=== PATIENT | female | born 1945 | race Caucasian/White ===

== ENCOUNTER 2017-01-09 15:46 | Emergency (ER) | payer OTHER ==
--- NOTE | 2017-01-09 16:34 | DIAGNOSTIC IMAGING REPORT ---
PROCEDURE: XR CHEST 2 VIEW INDICATION: SHORTNESS OF BREATH TECHNIQUE: PA and lateral views. COMPARISON: Chest 07/28/2013 FINDINGS: Hyperinflation. Lungs are clear. Cardiovascular structures and bony thorax are normal. IMPRESSION: 1. COPD 2. No acute changes
--- NOTE | 2017-01-09 17:33 | ED NURSING NOTES ---
Clinical Report - Nurses [facility] [address] [place] [address] 01/09/2017 15:47 Patient: PORFIRIO MO TRIAGE Triage time 15:49 Jan 09 2017. Acuity: LEVEL 2. Chief Complaint: WHEEZING (SOB). Alert. SEPSIS SCREEN: Sepsis Screen: negative. Negative (no infection suspected/documented). Mean arterial pressure less than 65. Temperature not greater than 38.3 degrees C (101 degrees F) or less than 36 degrees C (96.8 degrees F). Heart rate not greater than 90. Respiratory rate not greater than 20. No acute mental status change. Systolic blood pressure not less than 90. --16:00 Mona Starkey R.N. 15:49 01/09/17. BP: 219/112. HR: 91. RR: 24. O2 saturation: 99%. Temp: 98.2 F. --16:00 Mona Starkey R.N. 15:49 01/09/17. --17:46 Mona Starkey R.N. 17:46 01/09/17. Pain level now: 0/10. --17:46 Mona Starkey R.N. Weight: 45.3 kg stated. Height/Length: 60 inches Per Patient. BMI: 19.5. --16:00 Mona Starkey R.N. Medications Albuterol Sulfate ER Oral. --15:50 Mona Starkey R.N. Advair Diskus Inhalation. --15:50 Mona Starkey R.N. Aspirin Oral (Tablet Chewable 81 mg) 1 tablet, QAM. BuPROPion HCl Oral 450 mg, daily. Metoprolol Tartrate Oral (Tablet 25 mg), QAM. Omeprazole Oral (Capsule Delayed Release 20 mg), daily. --15:52 Mona Starkey R.N. Mirtazapine Oral. --15:52 Mona Starkey R.N. Allergies morphine. --15:50 Mona Starkey R.N. History Arrived by EMS, and from home. Historian: spouse and family. Accompanied by family. This started today. She has had difficulty breathing. 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 (125 solumedrol). PAST MEDICAL HX: Immunizations: up-to-date. The patient has had a hysterectomy. Denies current . SOCIAL HX: Current every day light tobacco smoker (cigarette)- less than 1/2 a pack per day. No alcohol use or drug use. No infectious disease exposure. FALL RISK ASSESSMENT: Fall risk assessment completed. No fall risk identified. NUTRITIONAL RISK ASSESSMENT: The nutritional risk assessment revealed no deficiencies. FUNCTIONAL ASSESSMENT: Functional assessment: no impairments noted. LEARNING NEEDS ASSESSMENT: The learning needs assessment revealed no barriers. SKIN INTEGRITY ASSESSMENT: Skin integrity risk assessment completed. No skin integrity risk identified. --16:00 Mona Starkey R.N. PROBLEMS: UTI - Urinary Tract Infection. Depression. Diverticulosis. Hypertension. Gastroesophageal Reflux. Atypical Chest Pain. Chest Pain. Immunizations. Diverticulitis. COPD - Chronic Obstructive Pulmonary Disease. --15:52 Mona Starkey R.N. ADDITIONAL SURGERIES: Hysterectomy. --15:52 Mona Starkey R.N. Interventions ID band on patient. To room. --16:00 Mona Starkey R.N. PHYSICAL ASSESSMENT GENERAL / NEURO / PSYCH: Alert. Oriented X 4. HEENT: Runny nose. RESPIRATORY: The patient can speak a few words at a time. Accessory muscle use. CVS: Capillary refill is greater than 2 seconds. SKIN: Skin is warm and dry. --16:01 Mona Starkey R.N. NURSING PROGRESS NOTES 16:02 01/09/2017 Site #1 started prior to arrival by EMS via IV in the right forearm with an 20g angiocath. --16:02 Mona Starkey R.N. Oxygen administered at 2 liters. school lunch monitor, pulse oximeter and NIBP monitor placed on patient; monitor and storage bin tender- Lead II; monitor alarms on. Two patient identifiers checked. Call light placed in reach. Side rails up. Bed placed in lowest position. Brakes of bed on. Patient ready for evaluation- chart flagged. --16:02 Mona Starkey R.N. EKG time: (16:02). EKG was performed by a tech and shown to the ED physician. --16:07 Darion Marcus 16:15 01/09/2017 Solu-MEDROL IV 125 mg (NOW) was refused by held per RN because of given by medics. Mona Starkey --16:15 Mona Starkey R.N. 16:21 01/09/2017 ALBUTEROL NEB W ATROVENT Neb TX Nebulizer 1 unit dose given. Given by the respiratory therapist. Allergies verified and confirmed 5 rights. --16:21 Melissa Hoyos 16:21 01/09/2017 Albuterol Neb TX 2 unit dose given. Given by the respiratory therapist. Allergies verified and confirmed 5 rights. --16:21 Melissa Hoyos 16:31 01/09/17. BP: 184/90. HR: 81. RR: 16. O2 saturation: 100% at 10 liters/minute. --16:32 Mona Starkey R.N. DISPOSITION / DISCHARGE Condition at departure: improved. --17:38 Mona Starkey R.N. 17:38 01/09/17. BP: 147/81. HR: 91. RR: 23. O2 saturation: 93%. Pain level now: 0/10. --17:38 Mona Starkey R.N. Departure time: 17:45 Jan 09 2017. Condition at departure: improved. No learning barriers present. Discharge instructions provided and reviewed with the patient. Reviewed medication(s) side effects, precautions and dosing information. Prescription(s) given to the patient. Reviewed referral to a primary care physician. Reviewed need to stop smoking- provided smoking cessation materials. Patient verbalized understanding. Written instructions provided in Faroese. The patient was discharged home and accompanied by spouse. She left the Emergency Department ambulatory and via private vehicle. Spouse driving. --17:45 Mona Starkey R.N. Locked/Released at 01/09/2017 18:31 by Mona Starkey R.N.
--- NOTE | 2017-01-09 17:33 | ED ORDER SUMMARY ---
..... Patient: PORFIRIO MO OrderSheet [facility] VisitID: [id number] [place] [address] 71y, F Registration Date/Time: 01/09/2017 ORDER SHEET Weight: 45.3 kg (stated) Allergies: morphine GENERAL ORDERS: Chest 2V Urgent (16:09 01/09/2017 HBivens A.R.N.P.) (Ack 16:16 RKaruga) (16:30 KKnebel R.N.) CBC w Diff Urgent (16:10 01/09/2017 HBivens A.R.N.P.) (Ack 16:16 RKaruga) (16:31 KKnebel R.N.) CMP Urgent (16:01/09/2017 HBivens A.R.N.P.) (Ack 16:16 RKaruga) (16:31 KKnebel R.N.) MEDICATION ORDERS: Albuterol Neb w Atrovent 1 unit dose (NOW) (16:09 01/09/2017 HBivens A.R.N.P.) (16:21 John) Albuterol Neb Tx 2 unit doses (NOW) (16:10 01/09/2017 HBivens A.R.N.P.) (16:21 John) IV FLUIDS: Solu-MEDROL IV 125 mg (NOW) (16:10 01/09/2017 HBivens A.R.N.P.) (16:15 KKnebel R.N.) IV Saline Lock (16:10 01/09/2017 HBivens A.R.N.P.) (16:12 KKnebel R.N.) ORDER SHEET NOTES: [Electronically signed by Mona Starkey R.N. (18:31 01/09/2017)] [Electronically signed by Neena Agrawal A.R.N.P. (18:49 01/09/2017)] [Electronically locked/signed by Mona Starkey R.N. (18:31 01/09/2017)]
--- NOTE | 2017-01-09 17:33 | ED NURSING NOTES ---
Clinical Report - Nurses [facility] [address] [place] [address] 01/09/2017 15:47 Patient: PORFIRIO MO TRIAGE Triage time 15:49 Jan 09 2017. Acuity: LEVEL 2. Chief Complaint: WHEEZING (SOB). Alert. SEPSIS SCREEN: Sepsis Screen: negative. Negative (no infection suspected/documented). Mean arterial pressure less than 65. Temperature not greater than 38.3 degrees C (101 degrees F) or less than 36 degrees C (96.8 degrees F). Heart rate not greater than 90. Respiratory rate not greater than 20. No acute mental status change. Systolic blood pressure not less than 90. --16:00 Mona Starkey R.N. 15:49 01/09/17. BP: 219/112. HR: 91. RR: 24. O2 saturation: 99%. Temp: 98.2 F. --16:00 Mona Starkey R.N. 15:49 01/09/17. --17:46 Mona Starkey R.N. 17:46 01/09/17. Pain level now: 0/10. --17:46 Mona Starkey R.N. Weight: 45.3 kg stated. Height/Length: 60 inches Per Patient. BMI: 19.5. --16:00 Mona Starkey R.N. Medications Albuterol Sulfate ER Oral. --15:50 Mona Starkey R.N. Advair Diskus Inhalation. --15:50 Mona Starkey R.N. Aspirin Oral (Tablet Chewable 81 mg) 1 tablet, QAM. BuPROPion HCl Oral 450 mg, daily. Metoprolol Tartrate Oral (Tablet 25 mg), QAM. Omeprazole Oral (Capsule Delayed Release 20 mg), daily. --15:52 Mona Starkey R.N. Mirtazapine Oral. --15:52 Mona Starkey R.N. Allergies morphine. --15:50 Mona Starkey R.N. History Arrived by EMS, and from home. Historian: spouse and family. Accompanied by family. This started today. She has had difficulty breathing. 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 (125 solumedrol). PAST MEDICAL HX: Immunizations: up-to-date. The patient has had a hysterectomy. Denies current . SOCIAL HX: Current every day light tobacco smoker (cigarette)- less than 1/2 a pack per day. No alcohol use or drug use. No infectious disease exposure. FALL RISK ASSESSMENT: Fall risk assessment completed. No fall risk identified. NUTRITIONAL RISK ASSESSMENT: The nutritional risk assessment revealed no deficiencies. FUNCTIONAL ASSESSMENT: Functional assessment: no impairments noted. LEARNING NEEDS ASSESSMENT: The learning needs assessment revealed no barriers. SKIN INTEGRITY ASSESSMENT: Skin integrity risk assessment completed. No skin integrity risk identified. --16:00 Mona Starkey R.N. PROBLEMS: UTI - Urinary Tract Infection. Depression. Diverticulosis. Hypertension. Gastroesophageal Reflux. Atypical Chest Pain. Chest Pain. Immunizations. Diverticulitis. COPD - Chronic Obstructive Pulmonary Disease. --15:52 Mona Starkey R.N. ADDITIONAL SURGERIES: Hysterectomy. --15:52 Mona Starkey R.N. Interventions ID band on patient. To room. --16:00 Mona Starkey R.N. PHYSICAL ASSESSMENT GENERAL / NEURO / PSYCH: Alert. Oriented X 4. HEENT: Runny nose. RESPIRATORY: The patient can speak a few words at a time. Accessory muscle use. CVS: Capillary refill is greater than 2 seconds. SKIN: Skin is warm and dry. --16:01 Mona Starkey R.N. NURSING PROGRESS NOTES 16:02 01/09/2017 Site #1 started prior to arrival by EMS via IV in the right forearm with an 20g angiocath. --16:02 Mona Starkey R.N. Oxygen administered at 2 liters. engine monitor, pulse oximeter and NIBP monitor placed on patient; groundwater monitoring technician- Lead II; monitor alarms on. Two patient identifiers checked. Call light placed in reach. Side rails up. Bed placed in lowest position. Brakes of bed on. Patient ready for evaluation- chart flagged. --16:02 Mona Starkey R.N. EKG time: (16:02). EKG was performed by a tech and shown to the ED physician. --16:07 Darion Marcus 16:15 01/09/2017 Solu-MEDROL IV 125 mg (NOW) was refused by held per RN because of given by medics. Mona Starkey --16:15 Mona Starkey R.N. 16:21 01/09/2017 ALBUTEROL NEB W ATROVENT Neb TX Nebulizer 1 unit dose given. Given by the respiratory therapist. Allergies verified and confirmed 5 rights. --16:21 Melissa Hoyos 16:21 01/09/2017 Albuterol Neb TX 2 unit dose given. Given by the respiratory therapist. Allergies verified and confirmed 5 rights. --16:21 Melissa Hoyos 16:31 01/09/17. BP: 184/90. HR: 81. RR: 16. O2 saturation: 100% at 10 liters/minute. --16:32 Mona Starkey R.N. DISPOSITION / DISCHARGE Condition at departure: improved. --17:38 Mona Starkey R.N. 17:38 01/09/17. BP: 147/81. HR: 91. RR: 23. O2 saturation: 93%. Pain level now: 0/10. --17:38 Mona Starkey R.N. Departure time: 17:45 Jan 09 2017. Condition at departure: improved. No learning barriers present. Discharge instructions provided and reviewed with the patient. Reviewed medication(s) side effects, precautions and dosing information. Prescription(s) given to the patient. Reviewed referral to a primary care physician. Reviewed need to stop smoking- provided smoking cessation materials. Patient verbalized understanding. Written instructions provided in Brazilian. The patient was discharged home and accompanied by spouse. She left the Emergency Department ambulatory and via private vehicle. Spouse driving. --17:45 Mona Starkey R.N. Locked/Released at 01/09/2017 18:31 by Mona Starkey R.N.
--- NOTE | 2017-01-09 17:33 | ED ORDER SUMMARY ---
..... Patient: PORFIRIO MO OrderSheet [facility] VisitID: [id number] [place] [address] 71y, F Registration Date/Time: 01/09/2017 ORDER SHEET Weight: 45.3 kg (stated) Allergies: morphine GENERAL ORDERS: Chest 2V Urgent (16:09 01/09/2017 HBivens A.R.N.P.) (Ack 16:16 RKaruga) (16:30 KKnebel R.N.) CBC w Diff Urgent (16:10 01/09/2017 HBivens A.R.N.P.) (Ack 16:16 RKaruga) (16:31 KKnebel R.N.) CMP Urgent (16:01/09/2017 HBivens A.R.N.P.) (Ack 16:16 RKaruga) (16:31 KKnebel R.N.) MEDICATION ORDERS: Albuterol Neb w Atrovent 1 unit dose (NOW) (16:09 01/09/2017 HBivens A.R.N.P.) (16:21 John) Albuterol Neb Tx 2 unit doses (NOW) (16:10 01/09/2017 HBivens A.R.N.P.) (16:21 John) IV FLUIDS: Solu-MEDROL IV 125 mg (NOW) (16:10 01/09/2017 HBivens A.R.N.P.) (16:15 KKnebel R.N.) IV Saline Lock (16:10 01/09/2017 HBivens A.R.N.P.) (16:12 KKnebel R.N.) ORDER SHEET NOTES: [Electronically signed by Mona Starkey R.N. (18:31 01/09/2017)] [Electronically signed by Neena Agrawal A.R.N.P. (18:49 01/09/2017)] [Electronically locked/signed by Mona Starkey R.N. (18:31 01/09/2017)]
--- NOTE | 2017-01-09 17:33 | ED CLINICAL REPORT ---
Clinical Report - Physicians/Mid Levels [facility] [address] [place] [address] 01/09/2017 15:47 Patient: PORFIRIO MO Time Seen: 16:02; initial patient contact, initial documentation, patient care assumed. Arrived- By ambulance. Historian- patient. HISTORY OF PRESENT ILLNESS Chief Complaint: DYSPNEA and WHEEZING. This started just prior to arrival and is still present. The dyspnea is described as moderate. The patient has had a cough and orthopnea. No sputum production or chest pain or discomfort. See nurses notes for current asthma threapy. Asthma triggers: unknown. Takes asthma medications (inhaled albuterol, albuterol by nebulizer) (pt wears oxygen at home at 1.5l nc). Similar symptoms previously: Chronically, worse. Recent medical care: Not recently seen/assessed. REVIEW OF SYSTEMS No sore throat, nasal discharge, sinus drainage, fever or muscle aches. All systems otherwise negative, except as recorded above. PAST HISTORY See nurses notes. PROBLEMS: UTI - Urinary Tract Infection. Depression. Diverticulosis. Hypertension. Gastroesophageal Reflux. Atypical Chest Pain. Chest Pain. Immunizations. Diverticulitis. COPD - Chronic Obstructive Pulmonary Disease. --15:52 Mona Starkey R.N. ADDITIONAL SURGERIES: Hysterectomy. --15:52 Mona Starkey R.N. SOCIAL HISTORY Light tobacco smoker. No alcohol use or drug use. No recent travel. Is a local resident. FAMILY HISTORY Negative. ADDITIONAL NOTES The nursing notes have been reviewed with agreement regarding the chief complaint, HPI, ROS, PMH and patient medications and allergies. PHYSICAL EXAM Vital Signs: 01/09/2017 15:49 BP: 219/112. HR: 91. RR: 24. O2 saturation: 99%. Temp: 98.2 F. Have been reviewed as abnormal and appear to be correct. Hypertensive. Heart rate normal. Respiratory rate normal. Temperature normal. Oxygen saturation normal. Appearance: Alert. No acute distress. Eyes: Pupils equal, round and reactive to light. Eyes normal inspection. Neck: Normal inspection. Neck supple. CVS: Normal heart rate and rhythm. Heart sounds normal. Pulses normal. Respiratory: No respiratory distress. Breath sounds abnormal. Expiratory and inspiratory moderate bilateral wheezes diffusely. Back: Normal inspection. Skin: Skin warm and dry. Normal skin color. No rash. Normal skin turgor. Extremities: Extremities exhibit normal ROM. No lower extremity edema. Neuro: Oriented X 3. No motor deficit. No sensory deficit. LABS, X-RAYS, AND EKG Chest X-ray: Normal Chest X-Ray. (IMPRESSION: 1. COPD 2. No acute changes Electronically Final signed by:Jack Morgan MD 01/09/2017 4:34:46 PM). The X-rays were interpreted by the radiologist and contemporaneously by me. Interpretation time: 16:51. Laboratory Tests: CBC w Diff: (GIRMA: 01/09/2017 16:37) ( [facility] [place] 01/09/2017 16:53) Final results Test Result Flag Units (Reference) WHITE BLOOD COUNT 14.1 H K/uL (4.5-11.5) RED BLOOD COUNT 5.68 H M/uL (4.00-5.20) HEMOGLOBIN 15.0 gm/dL (12.0-16.0) HEMATOCRIT 47.2 H % (36.0-46.0) MEAN CELL VOLUME 83 fL (80-100) MEAN CORPUSCULAR HGB 27 pg (26-34) MEAN CORPUSCULAR HGB CONC 32 g/dL (31-37) RED CELL DISTRIBUTION WIDTH 16.5 H % (11.6-14.8) PLATELET COUNT 367 K/uL (150-400) NEUTROPHIL % 79.0 H % (50-75) LYMPH % 16.0 L % (25-40) MONO % 3.8 % (3-14) EOSINOPHIL % 1.0 % (0-4) BASOPHIL % 0.2 % (0-2) CMP: (GIRMA: 01/09/2017 16:37) ( [facility] [place] 01/09/2017 17:18) Final results Test Result Flag Units (Reference) GLUCOSE 149 H mg/dL (70-110) BUN 14 mg/dL (7-18) CREATININE 0.7 mg/dL (0.6-1.3) Estimated GFR >60 mL/min Estimated GFR- >60 mL/min Note: Persistent reduction over 3 months in eGFR<60 mL/min/1.73 m2 defines CKD. Patients with eGFR values>=60 mL/min/1.73 m2 may also have CKD if evidence ofpersistent proteinuria. Additional information may be foundat www.kidney.org. SODIUM 146 H mmol/L (136-145) POTASSIUM 3.7 mmol/L (3.5-5.1) CHLORIDE 104 mmol/L (98-107) CARBON DIOXIDE 35 H mmol/L (21-32) CALCIUM 9.3 mg/dL (8.5-10.1) TOTAL PROTEIN 7.7 g/dL (6.4-8.2) ALBUMIN 4.1 g/dL (3.3-5.0) BILIRUBIN, TOTAL 1.3 H mg/dL (0.0-1.0) ALKALINE PHOSPHATASE 88 U/L (46-116) AST (SGOT) 28 U/L (15-37) ALT (SGPT) 33 U/L (12-78) . PROGRESS AND PROCEDURES Course of Care: 1710. resp even and unlabored, nad, B breath sound with very mild insp wheeze, [id number], pt stated she felt much better. 01/09/2017 16:31 BP: 184/90. HR: 81. RR: 16. O2 saturation: 100%. Vital Signs: have been reviewed as abnormal and appear to be correct. Hypertensive. Heart rate normal. Respiratory rate normal. Oxygen saturation normal. Patient counseled in person regarding the patient's stable condition, test results and diagnosis. 1710. Differential Diagnosis: Other possible considerations: copd exac, pneumonia, bronchitis, uri, viral illness. Above considerations are based on history, physical exam, laboratory data and X-Ray data. Differential diagnosis was discussed with patient. Disposition: Discharged home in good and improved condition (17:33). Condition: good and stable. CLINICAL IMPRESSION Acute exacerbation of COPD (asthmatic, chronic bronchitis). No emphysema. INSTRUCTIONS Avoid tobacco smoke. Warnings: GENERAL WARNINGS: Return or contact your physician immediately if your condition worsens or changes unexpectedly, if not improving as expected, or if other problems arise. Specifically return if problem worsens. Prescription Medications: Prednisone 20 mg: take 3 orally every day for 5 days. Dispense fifteen (15). No refills. Zithromax 250 mg tablets: take 2 orally today, followed by 1 daily for the next 4 days. No refills. Substitution is permissible. Follow-up: Follow up with your doctor in two days even if well. Call for an appointment. Summary of care provided to patient. Screening today revealed the patient's blood pressure to be in the hypertensive range. The patient should follow up with a primary care provider for blood pressure management. Understanding of the discharge instructions verbalized by patient. (Electronically signed by Neena Agrawal A.R.N.P. 01/09/2017 18:49)
--- NOTE | 2017-01-09 18:49 | ED DISCHARGE INSTRUCTIONS ---
Patient: PORFIRIO MO General Instructions [facility] VisitID: [id number] [place] [address] 71y, F Registration Date/Time: 01/09/2017 Acute exacerbation of COPD (asthmatic, chronic bronchitis). No emphysema. INSTRUCTIONS Avoid tobacco smoke. Warnings: GENERAL WARNINGS: Return or contact your physician immediately if your condition worsens or changes unexpectedly, if not improving as expected, or if other problems arise. Specifically return if problem worsens. Prescription Medications: Prednisone 20 mg: take 3 orally every day for 5 days. Dispense fifteen (15). No refills. Zithromax 250 mg tablets: take 2 orally today, followed by 1 daily for the next 4 days. No refills. Substitution is permissible. Follow-up: Follow up with your doctor in two days even if well. Call for an appointment. Summary of care provided to patient. Screening today revealed the patient's blood pressure to be in the hypertensive range. The patient should follow up with a primary care provider for blood pressure management. Understanding of the discharge instructions verbalized by patient. ADDITIONAL INFORMATION COPD Flare Both emphysema and chronic bronchitis are forms of chronic obstructive pulmonary disease (COPD). It is most often caused by many years of smoking tobacco. Many things can make your lung disease suddenly get worse. These causes include the common cold, pneumonia, acute bronchitis, missing doses of your regular breathing medicines, or being around smoke, dust, or other air pollutants. A COPD flare may last 7 to 14 days. Your doctor may prescribe medicineto relax your airways and prevent wheezing. Your doctor may also prescribe antibiotics if he or she thinks you havea bacterial infection. Prednisone can helpease inflammation in a severe attack. Home care Here are things you can do at home: Drink lots of water or other fluids (at least 10 glasses a day) during an attack. This will loosen lung secretions and make it easier to breathe. If you have heart or kidney disease, check with your doctor before you drink extra amounts of fluids. Take prescribed medicine exactly at the times advised. If you have a hand-held inhaler or aerosol breathing medicine, don't use it more than once every 4 hours, unless your doctor tells you to. If you were givenan antibiotic or prednisone, take all of the medicine even if you are feeling better after a few days. Don't smoke. Avoid being aroundthe smoke of others. If you were given an inhaler, use it exactly as directed. If you need to use it more often than prescribed, your condition may be getting worse. Call your doctor. Follow-up care Follow up with your health care provider.If you are 65 or older or have chronic asthma or COPD, you should get a single dose of the pneumococcal vaccine and aflu shot each year. You may need a second dose of the pneumococcal vaccine if you had the first dose at a younger age. Your health care provider will let you know if you need a second dose. For all other people, the usual dose for the pneumococcal vaccine is 1 or 2 shots. Yourprovider can discuss this with you. When to seek medical care Get prompt medical attention ifany of these occur: Increased wheezing or shortness of breath Need to use your inhalers more often than usual without relief Fever of 100.4F(38C) or higher, or as directed by your health care provider Coughing up lots of dark-colored or bloody sputum (mucus) Chest pain with each breath You do not start to improve within 24 hours Prednisone Oral tablet What is this medicine? PREDNISONE (PRED ni sone) is a corticosteroid. It is commonly used to treat inflammation of the skin, joints, lungs, and other organs. Common conditions treated include asthma, allergies, and arthritis. It is also used for other conditions, such as blood disorders and diseases of the adrenal glands. How should I use this medicine? Take this medicine by mouth with a glass of water. Follow the directions on the prescription label. Take this medicine with food. If you are taking this medicine once a day, take it in the morning. Do not take more medicine than you are told to take. Do not suddenly stop taking your medicine because you may develop a severe reaction. Your doctor will tell you how much medicine to take. If your doctor wants you to stop the medicine, the dose may be slowly lowered over time to avoid any side effects. Talk to your stitch bonder machine operator helper regarding the use of this medicine in children. Special care may be needed. What side effects may I notice from receiving this medicine? Side effects that you should report to your doctor or health child care coordinator as soon as possible: allergic reactions like skin rash, itching or hives, swelling of the face, lips, or tongue changes in emotions or moods changes in vision depressed mood eye pain fever or chills, cough, sore throat, pain or difficulty passing urine increased thirst swelling of ankles, feet Side effects that usually do not require medical attention (report to your doctor or health child care coordinator if they continue or are bothersome): confusion, excitement, restlessness headache nausea, vomiting skin problems, acne, thin and shiny skin trouble sleeping weight gain What may interact with this medicine? Do not take this medicine with any of the following medications: metyrapone mifepristone This medicine may also interact with the following medications: aminoglutethimide amphotericin B aspirin and aspirin-like medicines barbiturates certain medicines for diabetes, like glipizide or glyburide cholestyramine cholinesterase inhibitors cyclosporine digoxin diuretics ephedrine female hormones, like estrogens and control pills isoniazid ketoconazole NSAIDS, medicines for pain and inflammation, like ibuprofen or naproxen phenytoin rifampin toxoids vaccines warfarin What if I miss a dose? If you miss a dose, take it as soon as you can. If it is almost time for your next dose, talk to your doctor or health child care coordinator. You may need to miss a dose or take an extra dose. Do not take double or extra doses without advice. Where should I keep my medicine? Keep out of the reach of children. Store at room temperature between 15 and 30 degrees C (59 and 86 degrees F). Protect from light. Keep container tightly closed. Throw away any unused medicine after the expiration date. What should I tell my health care provider before I take this medicine? They need to know if you have any of these conditions: Coy's syndrome diabetes glaucoma heart disease high blood pressure infection (especially a virus infection such as chickenpox, cold sores, or herpes) kidney disease liver disease mental illness myasthenia gravis osteoporosis seizures stomach or intestine problems thyroid disease an unusual or allergic reaction to lactose, prednisone, other medicines, foods, dyes, or preservatives or trying to get breast-feeding What should I watch for while using this medicine? Visit your doctor or health child care coordinator for regular checks on your progress. If you are taking this medicine over a prolonged period, carry an identification card with your name and address, the type and dose of your medicine, and your doctor's name and address. This medicine may increase your risk of getting an infection. Tell your doctor or health child care coordinator if you are around anyone with measles or chickenpox, or if you develop sores or blisters that do not heal properly. If you are going to have surgery, tell your doctor or health child care coordinator that you have taken this medicine within the last twelve months. Ask your doctor or health child care coordinator about your diet. You may need to lower the amount of salt you eat. This medicine may affect blood sugar levels. If you have diabetes, check with your doctor or health child care coordinator before you change your diet or the dose of your diabetic medicine. Azithromycin Oral tablet What is this medicine? AZITHROMYCIN (az ith avrilfrida STEPHENSON sin) is a macrolide antibiotic. It is used to treat or prevent certain kinds of bacterial infections. It will not work for colds, flu, or other viral infections. How should I use this medicine? Take this medicine by mouth with a full glass of water. Follow the directions on the prescription label. The tablets can be taken with food or on an empty stomach. If the medicine upsets your stomach, take it with food. Take your medicine at regular intervals. Do not take your medicine more often than directed. Take all of your medicine as directed even if you think your are better. Do not skip doses or stop your medicine early. Talk to your stitch bonder machine operator helper regarding the use of this medicine in children. Special care may be needed. What side effects may I notice from receiving this medicine? Side effects that you should report to your doctor or health child care coordinator as soon as possible: allergic reactions like skin rash, itching or hives, swelling of the face, lips, or tongue confusion, nightmares or hallucinations dark urine difficulty breathing hearing loss irregular heartbeat or chest pain pain or difficulty passing urine redness, blistering, peeling or loosening of the skin, including inside the mouth white patches or sores in the mouth yellowing of the eyes or skin Side effects that usually do not require medical attention (report to your doctor or health child care coordinator if they continue or are bothersome): diarrhea dizziness, drowsiness headache stomach upset or vomiting tooth discoloration vaginal irritation What may interact with this medicine? Do not take this medicine with any of the following medications: lincomycin This medicine may also interact with the following medications: amiodarone antacids cyclosporine digoxin magnesium nelfinavir phenytoin warfarin What if I miss a dose? If you miss a dose, take it as soon as you can. If it is almost time for your next dose, take only that dose. Do not take double or extra doses. Where should I keep my medicine? Keep out of the reach of children. Store at room temperature between 15 and 30 degrees C (59 and 86 degrees F). Throw away any unused medicine after the expiration date. What should I tell my health care provider before I take this medicine? They need to know if you have any of these conditions: kidney disease liver disease irregular heartbeat or heart disease an unusual or allergic reaction to azithromycin, erythromycin, other macrolide antibiotics, foods, dyes, or preservatives or trying to get breast-feeding What should I watch for while using this medicine? Tell your doctor or health child care coordinator if your symptoms do not improve. Do not treat diarrhea with over the counter products. Contact your doctor if you have diarrhea that lasts more than 2 days or if it is severe and watery. This medicine can make you more sensitive to the sun. Keep out of the sun. If you cannot avoid being in the sun, wear protective clothing and use sunscreen. Do not use sun lamps or tanning beds/booths. You have been given the following additional information: COPD Flare Prednisone Oral tablet Azithromycin Oral tablet (Electronically signed by Neena Agrawal A.R.NHaleigh 01/09/2017 18:49)
--- NOTE | 2017-01-09 18:49 | ED MED RECONCILIATION SUMMARY ---
Patient: PORFIRIO MO Medication Reconciliation Report [facility] VisitID: [id number] [address] [place] [address] 71y, F Registration Date/Time: 01/09/2017 Weight: 45.3 kg Height/Length: 60 in. BMI: 19.5 ALLERGIES: morphine The patient's Home Medications are listed below: THE FOLLOWING MEDICATIONS NEED TO BE RECONCILED: Advair Diskus Inhalation Albuterol Sulfate ER Oral Aspirin Oral (81 mg) 1 tablet, QAM BuPROPion HCl Oral 450 mg, daily Metoprolol Tartrate Oral (25 mg), QAM Mirtazapine Oral Omeprazole Oral (20 mg), daily The source(s) of the original Home Medication information: Not obtained. The following Medications were given to the patient in the Emergency Department: ALBUTEROL NEB W ATROVENT Neb TX 1 unit dose, administered: 01/09/2017 4:21:00 PM Albuterol [Neb Tx] Neb TX 2 unit dose, administered: 01/09/2017 4:21:00 PM The following Medications were prescribed to the patient: Prednisone 20 mg: take 3 orally every day for 5 days. Dispense fifteen (15). No refills. -- Neena Agrawal A.R.NIsabelP. Zithromax 250 mg tablets: take 2 orally today, followed by 1 daily for the next 4 days. No refills. Substitution is permissible. -- Neena Agrawal A.R.NIsabelP.
--- NOTE | 2017-01-09 18:49 | ED MAR SUMMARY ---
..... Medication Administration Record [facility] [address] [place] [address] Patient: PORFIRIO MO Visit ID: [id number] 71y, F Weight: 45.3 kg Height/Length: 60 in BMI: 19.5 ALLERGIES: morphine Given 16:01/09/2017 Melissa Hoyos, Medication Administered: ALBUTEROL NEB W ATROVENT, Dose: 1 unit dose Nebulizer Neb TX. Medication Ordered: Albuterol Neb w Atrovent 1 unit dose (NOW). Given 16:01/09/2017 Melissa Hoyos, Medication Administered: ALBUTEROL [NEB TX], Dose: 2 unit dose Neb TX. Medication Ordered: Albuterol Neb Tx 2 unit doses (NOW).
--- NOTE | 2017-01-09 18:49 | ED MED RECONCILIATION SUMMARY ---
Patient: PORFIRIO MO Medication Reconciliation Report [facility] VisitID: [id number] [address] [place] [address] 71y, F Registration Date/Time: 01/09/2017 Weight: 45.3 kg Height/Length: 60 in. BMI: 19.5 ALLERGIES: morphine The patient's Home Medications are listed below: THE FOLLOWING MEDICATIONS NEED TO BE RECONCILED: Advair Diskus Inhalation Albuterol Sulfate ER Oral Aspirin Oral (81 mg) 1 tablet, QAM BuPROPion HCl Oral 450 mg, daily Metoprolol Tartrate Oral (25 mg), QAM Mirtazapine Oral Omeprazole Oral (20 mg), daily The source(s) of the original Home Medication information: Not obtained. The following Medications were given to the patient in the Emergency Department: ALBUTEROL NEB W ATROVENT Neb TX 1 unit dose, administered: 01/09/2017 4:21:00 PM Albuterol [Neb Tx] Neb TX 2 unit dose, administered: 01/09/2017 4:21:00 PM The following Medications were prescribed to the patient: Prednisone 20 mg: take 3 orally every day for 5 days. Dispense fifteen (15). No refills. -- Neena Agrawal A.R.NIsabelP. Zithromax 250 mg tablets: take 2 orally today, followed by 1 daily for the next 4 days. No refills. Substitution is permissible. -- Neena Agrawal A.R.NIsabelP.
--- NOTE | 2017-01-09 18:49 | ED DISCHARGE INSTRUCTIONS ---
Patient: PORFIRIO MO [facility] VisitID: [id number] [place] [address] 71y, F Registration Date/Time: 01/09/2017 Acute exacerbation of COPD (asthmatic, chronic bronchitis). No emphysema. INSTRUCTIONS Avoid tobacco smoke. Warnings: GENERAL WARNINGS: Return or contact your physician immediately if your condition worsens or changes unexpectedly, if not improving as expected, or if other problems arise. Specifically return if problem worsens. Prescription Medications: Prednisone 20 mg: take 3 orally every day for 5 days. Dispense fifteen (15). No refills. Zithromax 250 mg tablets: take 2 orally today, followed by 1 daily for the next 4 days. No refills. Substitution is permissible. Follow-up: Follow up with your doctor in two days even if well. Call for an appointment. Summary of care provided to patient. Screening today revealed the patient's blood pressure to be in the hypertensive range. The patient should follow up with a primary care provider for blood pressure management. Understanding of the discharge instructions verbalized by patient. ADDITIONAL INFORMATION COPD Flare Both emphysema and chronic bronchitis are forms of chronic obstructive pulmonary disease (COPD). It is most often caused by many years of smoking tobacco. Many things can make your lung disease suddenly get worse. These causes include the common cold, pneumonia, acute bronchitis, missing doses of your regular breathing medicines, or being around smoke, dust, or other air pollutants. A COPD flare may last 7 to 14 days. Your doctor may prescribe medicineto relax your airways and prevent wheezing. Your doctor may also prescribe antibiotics if he or she thinks you havea bacterial infection. Prednisone can helpease inflammation in a severe attack. Home care Here are things you can do at home: Drink lots of water or other fluids (at least 10 glasses a day) during an attack. This will loosen lung secretions and make it easier to breathe. If you have heart or kidney disease, check with your doctor before you drink extra amounts of fluids. Take prescribed medicine exactly at the times advised. If you have a hand-held inhaler or aerosol breathing medicine, don't use it more than once every 4 hours, unless your doctor tells you to. If you were givenan antibiotic or prednisone, take all of the medicine even if you are feeling better after a few days. Don't smoke. Avoid being aroundthe smoke of others. If you were given an inhaler, use it exactly as directed. If you need to use it more often than prescribed, your condition may be getting worse. Call your doctor. Follow-up care Follow up with your health care provider.If you are 65 or older or have chronic asthma or COPD, you should get a single dose of the pneumococcal vaccine and aflu shot each year. You may need a second dose of the pneumococcal vaccine if you had the first dose at a younger age. Your health care provider will let you know if you need a second dose. For all other people, the usual dose for the pneumococcal vaccine is 1 or 2 shots. Yourprovider can discuss this with you. When to seek medical care Get prompt medical attention ifany of these occur: Increased wheezing or shortness of breath Need to use your inhalers more often than usual without relief Fever of 100.4F(38C) or higher, or as directed by your health care provider Coughing up lots of dark-colored or bloody sputum (mucus) Chest pain with each breath You do not start to improve within 24 hours Prednisone Oral tablet What is this medicine? PREDNISONE (PRED ni sone) is a corticosteroid. It is commonly used to treat inflammation of the skin, joints, lungs, and other organs. Common conditions treated include asthma, allergies, and arthritis. It is also used for other conditions, such as blood disorders and diseases of the adrenal glands. How should I use this medicine? Take this medicine by mouth with a glass of water. Follow the directions on the prescription label. Take this medicine with food. If you are taking this medicine once a day, take it in the morning. Do not take more medicine than you are told to take. Do not suddenly stop taking your medicine because you may develop a severe reaction. Your doctor will tell you how much medicine to take. If your doctor wants you to stop the medicine, the dose may be slowly lowered over time to avoid any side effects. Talk to your port surveyor regarding the use of this medicine in children. Special care may be needed. What side effects may I notice from receiving this medicine? Side effects that you should report to your doctor or health veterinarian laboratory animal care as soon as possible: allergic reactions like skin rash, itching or hives, swelling of the face, lips, or tongue changes in emotions or moods changes in vision depressed mood eye pain fever or chills, cough, sore throat, pain or difficulty passing urine increased thirst swelling of ankles, feet Side effects that usually do not require medical attention (report to your doctor or health veterinarian laboratory animal care if they continue or are bothersome): confusion, excitement, restlessness headache nausea, vomiting skin problems, acne, thin and shiny skin trouble sleeping weight gain What may interact with this medicine? Do not take this medicine with any of the following medications: metyrapone mifepristone This medicine may also interact with the following medications: aminoglutethimide amphotericin B aspirin and aspirin-like medicines barbiturates certain medicines for diabetes, like glipizide or glyburide cholestyramine cholinesterase inhibitors cyclosporine digoxin diuretics ephedrine female hormones, like estrogens and control pills isoniazid ketoconazole NSAIDS, medicines for pain and inflammation, like ibuprofen or naproxen phenytoin rifampin toxoids vaccines warfarin What if I miss a dose? If you miss a dose, take it as soon as you can. If it is almost time for your next dose, talk to your doctor or health veterinarian laboratory animal care. You may need to miss a dose or take an extra dose. Do not take double or extra doses without advice. Where should I keep my medicine? Keep out of the reach of children. Store at room temperature between 15 and 30 degrees C (59 and 86 degrees F). Protect from light. Keep container tightly closed. Throw away any unused medicine after the expiration date. What should I tell my health care provider before I take this medicine? They need to know if you have any of these conditions: Coy's syndrome diabetes glaucoma heart disease high blood pressure infection (especially a virus infection such as chickenpox, cold sores, or herpes) kidney disease liver disease mental illness myasthenia gravis osteoporosis seizures stomach or intestine problems thyroid disease an unusual or allergic reaction to lactose, prednisone, other medicines, foods, dyes, or preservatives or trying to get breast-feeding What should I watch for while using this medicine? Visit your doctor or health veterinarian laboratory animal care for regular checks on your progress. If you are taking this medicine over a prolonged period, carry an identification card with your name and address, the type and dose of your medicine, and your doctor's name and address. This medicine may increase your risk of getting an infection. Tell your doctor or health veterinarian laboratory animal care if you are around anyone with measles or chickenpox, or if you develop sores or blisters that do not heal properly. If you are going to have surgery, tell your doctor or health veterinarian laboratory animal care that you have taken this medicine within the last twelve months. Ask your doctor or health veterinarian laboratory animal care about your diet. You may need to lower the amount of salt you eat. This medicine may affect blood sugar levels. If you have diabetes, check with your doctor or health veterinarian laboratory animal care before you change your diet or the dose of your diabetic medicine. Azithromycin Oral tablet What is this medicine? AZITHROMYCIN (az ith avrilfrida STEPHENSON sin) is a macrolide antibiotic. It is used to treat or prevent certain kinds of bacterial infections. It will not work for colds, flu, or other viral infections. How should I use this medicine? Take this medicine by mouth with a full glass of water. Follow the directions on the prescription label. The tablets can be taken with food or on an empty stomach. If the medicine upsets your stomach, take it with food. Take your medicine at regular intervals. Do not take your medicine more often than directed. Take all of your medicine as directed even if you think your are better. Do not skip doses or stop your medicine early. Talk to your port surveyor regarding the use of this medicine in children. Special care may be needed. What side effects may I notice from receiving this medicine? Side effects that you should report to your doctor or health veterinarian laboratory animal care as soon as possible: allergic reactions like skin rash, itching or hives, swelling of the face, lips, or tongue confusion, nightmares or hallucinations dark urine difficulty breathing hearing loss irregular heartbeat or chest pain pain or difficulty passing urine redness, blistering, peeling or loosening of the skin, including inside the mouth white patches or sores in the mouth yellowing of the eyes or skin Side effects that usually do not require medical attention (report to your doctor or health veterinarian laboratory animal care if they continue or are bothersome): diarrhea dizziness, drowsiness headache stomach upset or vomiting tooth discoloration vaginal irritation What may interact with this medicine? Do not take this medicine with any of the following medications: lincomycin This medicine may also interact with the following medications: amiodarone antacids cyclosporine digoxin magnesium nelfinavir phenytoin warfarin What if I miss a dose? If you miss a dose, take it as soon as you can. If it is almost time for your next dose, take only that dose. Do not take double or extra doses. Where should I keep my medicine? Keep out of the reach of children. Store at room temperature between 15 and 30 degrees C (59 and 86 degrees F). Throw away any unused medicine after the expiration date. What should I tell my health care provider before I take this medicine? They need to know if you have any of these conditions: kidney disease liver disease irregular heartbeat or heart disease an unusual or allergic reaction to azithromycin, erythromycin, other macrolide antibiotics, foods, dyes, or preservatives or trying to get breast-feeding What should I watch for while using this medicine? Tell your doctor or health veterinarian laboratory animal care if your symptoms do not improve. Do not treat diarrhea with over the counter products. Contact your doctor if you have diarrhea that lasts more than 2 days or if it is severe and watery. This medicine can make you more sensitive to the sun. Keep out of the sun. If you cannot avoid being in the sun, wear protective clothing and use sunscreen. Do not use sun lamps or tanning beds/booths. You have been given the following additional information: COPD Flare Prednisone Oral tablet Azithromycin Oral tablet (Electronically signed by Neena Agrawal A.R.NHaleigh 01/09/2017 18:49)
--- NOTE | 2017-01-09 18:49 | ED MAR SUMMARY ---
..... Medication Administration Record [facility] [address] [place] [address] Patient: PORFIRIO MO Visit ID: [id number] 71y, F Weight: 45.3 kg Height/Length: 60 in BMI: 19.5 ALLERGIES: morphine Given 16:01/09/2017 Melissa Hoyos, Medication Administered: ALBUTEROL NEB W ATROVENT, Dose: 1 unit dose Nebulizer Neb TX. Medication Ordered: Albuterol Neb w Atrovent 1 unit dose (NOW). Given 16:01/09/2017 Melissa Hoyos, Medication Administered: ALBUTEROL [NEB TX], Dose: 2 unit dose Neb TX. Medication Ordered: Albuterol Neb Tx 2 unit doses (NOW).
== END 2017-01-09 17:41 | disposition home or self-care (01) ==
LOC: ED SRH 15:46
DX: J44.1 Chronic obstructive pulmonary disease with (acute) exacerbation (principal); F17.210 Nicotine dependence, cigarettes, uncomplicated; K21.9 Gastro-esophageal reflux disease without esophagitis; I10 Essential (primary) hypertension; Z90.710 Acquired absence of both cervix and uterus; Z88.5 Allergy status to narcotic agent
CPT/HCPCS: 90074; 90100; 95059

== ENCOUNTER 2017-01-24 20:13 | Inpatient (IN) | payer OTHER ==
[~2017-01-24] VITALS: Ht 152.4 cm; Wt 47.3 kg
--- NOTE | 2017-01-24 22:11 | DIAGNOSTIC IMAGING REPORT ---
PROCEDURE: XR CHEST 1 VIEW INDICATION: SHORTNESS OF BREATH TECHNIQUE: Single view. COMPARISON: 01/09/2017 FINDINGS: The cardiomediastinal contour is normal. No central venous congestion. The pulmonary arteries are prominent. The lungs hyperinflated. Minor irregular opacity developing in the left lung base with blunting of the costophrenic angle, new. Pleural tethering at the right lateral lower lung. Mild right peribronchial thickening in the lower lobe. No pneumothorax. The osseous structures are intact. IMPRESSION: 1. Interval development of minor alveolar irregularity left lower lobe and right lower lobe peribronchial thickening. Possible small left effusion. 2. Findings of COPD/emphysema.
--- NOTE | 2017-01-24 23:53 | ED NURSING NOTES ---
Clinical Report - Nurses [facility] [address] [place] [address] 01/24/2017 20:14 Patient: JORGE MO TRIAGE Triage time 20:16. Acuity: LEVEL 2. Chief Complaint: SHORTNESS OF BREATH and (Jorge presents to the ED c/o SOB and productive cough; on 1-1.5 L of O2 at home. Onset of SOB about 3 days. Spouse says Jorge is only able to tolerate getting out of her chair to use the bathroom but not much else.). Alert. SEPSIS SCREEN: Sepsis Screen: negative. Negative (no infection suspected/documented). --20:28 Jimenez Leonardo R.N. 20:14 01/24/17. BP: 193/108 (regular adult cuff) taken on the left arm, via an automated monitor, while lying. HR: 113 (regular and tachycardic). RR: 24 (regular, labored and rapid). O2 saturation: 97% on face mask. Temp: 100.6 F (oral). Pain level now: 0/10. --20:28 Jimenez Leonardo R.N. Weight: 50.7 kg measured. Height/Length: 60 inches Per Patient. BMI: 21.8. --20:21 Jimenez Leonardo R.N. Medications BuPROPion HCl Oral 150 mg, daily. --20:17 Jimenez Leonardo R.N. Mirtazapine Oral (Tablet 15 mg), daily. --20:17 Jimenez Leonardo R.N. Omeprazole Oral 20 mg, daily. --20:17 Jimenez Leonardo R.N. Metoprolol Succinate ER Oral (Tablet Extended Release 24 Hour 25 mg) 1 tablet, daily. --20:17 Jimenez Leonardo R.N. Atorvastatin Calcium Oral (Tablet 40 mg) 1 tablet, daily. --20:17 Jimenez Leonardo R.N. Ipratropium [place] Inhalation (Solution 0.02 %), daily. --20:18 Jimenez Leonardo R.N. Ventolin HFA Inhalation (Aerosol Solution 108 (90 Base) mcg/act), daily as needed. --20:18 Jimenez Leonardo R.N. Albuterol Sulfate Inhalation (Nebulization Solution (2.5 MG/3ML) 0.083%) 1 unit dose, PRN. --20:18 Jimenez Leonardo R.N. Medication/allergy information source: the patient's spouse. --20:28 Jimenez Leonardo R.N. Allergies morphine. --20:16 Jimenez Leonardo R.N. History Arrived by private vehicle. Historian: significant other. Accompanied by spouse. Primary physician ([facility]). Onset. (about 3 days ago). She has had fever, a cough productive of sputum and chest pain. 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 ALBUTEROL nebulizer treatment #1. ( Atrovent x 1). PAST MEDICAL HX: Immunizations: up-to-date and has received pneumonia vaccine; seasonal influenza. The patient has had a hysterectomy. SOCIAL HX: Light tobacco smoker (cigarette)- less than 1/2 a pack per day. No alcohol use or drug use. She has not traveled outside the [place] The patient was not exposed to MRSA. ABUSE ASSESSMENT: Abuse assessment: The patient was asked "Do you feel safe in your home?" and "Has anyone hurt you or threatened to hurt you?". No report of abuse. SELF HARM ASSESSMENT: A self harm assessment was performed. The patient answered "no" to the question "Do you have thoughts of harming or killing yourself?" and "Have you recently had thoughts about harming or killing others?". FALL RISK ASSESSMENT: Fall risk assessment completed. No fall risk identified. NUTRITIONAL RISK ASSESSMENT: The nutritional risk assessment revealed no deficiencies. FUNCTIONAL ASSESSMENT: Functional assessment: no impairments noted. LEARNING NEEDS ASSESSMENT: The learning needs assessment revealed no barriers. SKIN INTEGRITY ASSESSMENT: Skin integrity risk assessment completed. No skin integrity risk identified. --20:28 Jimenez Leonardo R.N. PROBLEMS: Hyperlipidemia. UTI - Urinary Tract Infection. Depression. Diverticulosis. Hypertension. Gastroesophageal Reflux. Atypical Chest Pain. Chest Pain. Immunizations. Diverticulitis. COPD - Chronic Obstructive Pulmonary Disease. --20:19 Jimenez Leonardo R.N. ADDITIONAL SURGERIES: Hysterectomy. --20:19 Jimenez Leonardo R.N. Assessment GENERAL / NEURO / PSYCH: Alert. Appears in distress. [place] Coma Scale: 15- eyes open spontaneously (4); best verbal response- oriented x 4 (5); best motor response- obeys commands (6). Patient appears calm and cooperative. RESPIRATORY: Severe respiratory distress. SKIN: Skin is warm and dry. --20:28 Jimenez Leonardo R.N. Interventions ID and allergy band on patient. To treatment room. --20:28 Jimenez Leonardo R.N. PHYSICAL ASSESSMENT To room via stretcher. GENERAL / NEURO / PSYCH: Alert. Oriented X 4. Appears in distress. RESPIRATORY: Severe respiratory distress. The patient can speak one word at a time. Prominent clavicular, intercostal and substernal accessory muscle use. Cough productive of sputum. Chest nontender. Decreased breath sounds in the bases bilaterally. CVS: Cardiac rhythm: sinus tachycardia. Pulses: right radial 2+ and left radial 2+. Capillary refill less than 2 seconds. GI / : Abdomen soft and nontender. SKIN: Skin is warm and dry. --20:46 Jimenez Leonardo R.N. NURSING PROGRESS NOTES The initial plan of care for this patient has been created This plan of care was discussed with the patient and spouse. Oxygen administered by nasal cannula at 3 liters. ekg monitor, pulse oximeter and NIBP monitor placed on patient; cardiac surgeon- Lead II. EKG time: (2027). EKG was ordered, performed by a tech and shown to the ED physician. Patient gowned. Head of bed elevated. Reassurance given to the patient and patient's family. Two patient identifiers checked. Call light placed in reach. Side rails up x 2. Bed placed in lowest position. Brakes of bed on. --20:28 Jimenez Leonardo R.N. 20:29 01/24/2017 Site #1 started via IV in the right antecubital space with an 20g angiocath, with aseptic technique and good blood return; one attempt. Blood drawn: rainbow set. Labeled in the presence of the patient and sent to the lab. Saline lock flushed with 10 mL saline. --20:29 Jimenez Leonardo R.N. 20:29 01/24/17. BP: 200/91 (regular adult cuff) taken on the left arm, via an automated monitor, while lying. HR: 110 (regular and tachycardic). RR: 20 (regular and labored). O2 saturation: 93% on nasal cannula at 3 liters/minute. --20:30 Jimenez Leonardo R.N. 20:37 01/24/2017 SOLU-MEDROL (MethylPREDNISolone Sodium Succ) IVP 125 mg given over 2 minute(s) via site #1. Allergies verified and confirmed 5 rights. IV patency established. IV site checked: no pain, redness, or swelling. IV flushed thoroughly pre- and post-medication administration. IVP given by RN. --20:37 Jimenez Leonardo R.N. ( BiPAP initiated at this time.). --20:39 Jimenez Leonardo R.N. 20:42 01/24/17. BP: 123/73 (regular adult cuff) taken on the left arm, via an automated monitor, while lying. HR: 106 (regular and tachycardic). RR: 18 (regular, unlabored and normal). O2 saturation: 96% on face mask. Additional comments: BiPAP. --20:42 Jimenez Leonardo R.N. Overall patient status is improved. --20:42 Jimenez Leonardo R.N. Critical value relayed to ED by Gillian/Kellie. Critical value received by prasad. WBC: 27.5. Critical value read back. Verified lab result and patient ID. ED physician and charge nurse notifed of critical value (Dr. Christy). --21:07 Prasad Klein R.N. 21:09 01/24/17. BP: 112/68 (regular adult cuff) taken on the left arm, via an automated monitor, while lying. HR: 100 (regular and tachycardic). RR: 20 (regular and labored). O2 saturation: 95% on face mask. Additional comments: BiPAP. --21:10 Jimenez Leonardo R.N. 21:40 01/24/17. BP: 85/52 (regular adult cuff) taken on the left arm, via an automated monitor, while lying. HR: 98 (regular and normal rate). RR: 18 (regular, unlabored and normal). O2 saturation: 98% on face mask. Additional comments: BiPAP. --21:40 Jimenez Leonardo R.N. The patient is calm and resting quietly. Overall patient status is improved- she states feels better. RESPIRATORY: Mild respiratory distress present (Mild retractions; overall improved.). No hyperventilation. --21:42 Jimenez Leonardo R.N. 22:20 01/24/17. BP: 84/59 (regular adult cuff) taken on the left arm, via an automated monitor, while lying. HR: 93 (regular and normal rate). RR: 18 (regular, unlabored and normal). O2 saturation: 95%. Additional comments: BiPaP. --22:21 Jimenez Leonardo R.N. The patient is calm and resting quietly. --22:21 Jimenez Leonardo R.N. 22:21 01/24/2017 Site #2 started via IV in the left hand with an 20g angiocath, with aseptic technique and good blood return; one attempt. Blood drawn: cultures x1. Labeled in the presence of the patient and sent to the lab. Saline lock flushed with 10 mL saline. --22:21 Jimenez Leonardo R.N. 22:22 01/24/2017 Started 2 gm of Rocephin (CefTRIAXone Sodium) IVPB in bag #1 50 mL; at 100 mL/hr over 30 minute(s) via site #1; Allergies verified and confirmed 5 rights. IV patency established. IV site checked: no pain, redness, or swelling. IV flushed thoroughly pre- and post-medication administration. Completed per protocol. --22:22 Jimenez Leonardo R.N. 22:22 01/24/2017 Started bag #1 1000 mL IV Fluids IV NS (Saline); at 1000 mL/hr over 1 hour(s) via site #1. Allergies verified and confirmed 5 rights. IV patency established. IV site checked: no pain, redness, or swelling. IV flushed thoroughly pre- and post-medication administration. Completed per protocol. --22:22 Jimenez Leonardo R.N. 22:43 01/24/17. BP: 66/45 (regular adult cuff) taken on the left arm, via an automated monitor, while lying. HR: 92 (regular and normal rate). RR: 16 (regular, unlabored and normal). O2 saturation: 93% on nasal cannula at 3 liters/minute. Additional comments: BiPAP stopped at this time per Dr. Osborne for BP concerns. . --22:44 Jimenez Leonardo R.N. 22:45 01/24/2017 Rocephin IVPB Discontinued: bag #1 completed upon admission. Total amount infused: 50 mL. IV patency established. IV site checked: no pain, redness, or swelling. IV flushed thoroughly. --22:45 Jimenez Leonardo R.N. Cardiac rhythm: normal sinus rhythm. ( Jorge is tolerating conversation; able to speak full sentences. At this time, she reports to Dr. Osborne she is feeling a lot better and is wishing not to go on the BiPaP mask.). --22:47 Jimenez Leonardo R.N. 22:45 01/24/17. BP: 101/60 (regular adult cuff) taken on the left arm, via an automated monitor, while lying. HR: 89 (regular and normal rate). RR: 22 (regular, labored and normal). O2 saturation: 91% on nasal cannula at 3 liters/minute. Additional comments: Mildly labored. . --22:47 Jimenez Leonardo R.N. The patient is calm and resting quietly. Overall patient status is improved- she states feels better. RESPIRATORY: Mild respiratory distress present. CVS: Normal sinus rhythm noted. --22:55 Jimenez Leonardo R.N. 22:54 01/24/17. BP: 97/59 (regular adult cuff) taken on the left arm, via an automated monitor, while lying. HR: 87 (regular and normal rate). RR: 20 (regular, unlabored and normal). O2 saturation: 92% on nasal cannula at 3 liters/minute. --22:55 Jimenez Leonardo R.N. 22:55 01/24/2017 Started 250 mg of Zithromax (Azithromycin) IVPB in bag #1 250 mL; at 250 mL/hr over 1 hour(s) via site #1; Allergies verified and confirmed 5 rights. IV patency established. IV site checked: no pain, redness, or swelling. IV flushed thoroughly pre- and post-medication administration. Completed per protocol. --22:55 Jimenez Leonardo R.N. The patient is calm and resting quietly. ( Spouse at bedside.). RESPIRATORY: Mild respiratory distress present. CVS: Normal sinus rhythm noted. SKIN: Skin is warm and dry. --23:07 Jimenez Leonardo R.N. 23:06 01/24/17. BP: 104/61 (regular adult cuff) taken on the left arm, via an automated monitor, while lying. HR: 87 (regular and normal rate). RR: 16 (regular, unlabored and normal). O2 saturation: 95% on nasal cannula at 3 liters/minute. --23:07 Jimenez Leonardo R.N. The patient is calm and resting quietly. CVS: Normal sinus rhythm noted. --23:35 Ernesto Sarabia R.N. 23:34 01/24/17. BP: 109/60 (regular adult cuff) taken on the left arm, via an automated monitor, while lying. HR: 87 (regular and normal rate). RR: 18 (regular, unlabored and normal). O2 saturation: 93% on nasal cannula at 3 liters/minute. --23:35 Ernesto Sarabia R.N. The patient is calm and resting quietly. RESPIRATORY: Mild respiratory distress present. CVS: Normal sinus rhythm noted. --23:57 Jimenez Leonardo R.N. 23:56 01/24/17. BP: 100/63 (regular adult cuff) taken on the left arm, via an automated monitor, while lying. HR: 85 (regular and normal rate). RR: 22 (regular, labored and normal). O2 saturation: 93% on nasal cannula at 3 liters/minute. --23:57 Jimenez Leonardo R.N. 00:12 01/25/2017 Zithromax IVPB Discontinued: bag #1 completed upon transfer. Total amount infused: 250 mL. IV patency established. IV site checked: no pain, redness, or swelling. IV flushed thoroughly. --00:12 Jimenez Leonardo R.N. 00:12 01/25/2017 IV Fluids IV NS Discontinued: bag #1 completed upon transfer. Total amount infused: 1000 mL. IV patency established. IV site checked: no pain, redness, or swelling. IV flushed thoroughly. --00:12 Jimenez Leonardo R.N. 00:12 01/25/2017 SOLU-MEDROL IVP Response: no adverse reaction symptoms have improved the patient feels better. --00:12 Jimenez Leonardo R.N. Cardiac rhythm: normal sinus rhythm. The patient is calm and resting quietly. SKIN: Skin is warm and dry. Skin color within normal limits. --00:39 Jimenez Leonardo R.N. 00:38 01/25/17. BP: 112/65 (regular adult cuff) taken on the left arm, via an automated monitor, while lying. HR: 86 (regular and normal rate). RR: 18 (regular, unlabored and normal). O2 saturation: 95% on nasal cannula at 3 liters/minute. --00:39 Jimenez Leonardo R.NIsabel 01:15. The patient is calm and resting quietly. CVS: Normal sinus rhythm noted. --01:59 Jimenez Leonardo R.N. 01:15 01/25/17. BP: 124/63 (regular adult cuff) taken on the left arm, via an automated monitor, while lying. HR: 88 (regular and normal rate). RR: 18 (regular, unlabored and normal). O2 saturation: 93% on nasal cannula at 3 liters/minute. --01:59 Jimenez Leonardo R.N. The patient is calm and resting quietly. RESPIRATORY: Mild respiratory distress present. CVS: Normal sinus rhythm noted. SKIN: Skin is warm and dry. --02:01 Jimenez Leonardo R.N. 01:59 01/25/17. BP: 120/64 (regular adult cuff) taken on the left arm, via an automated monitor, while lying. HR: 87 (regular and normal rate). RR: 18 (regular, unlabored and normal). O2 saturation: 92% on nasal cannula at 3 liters/minute. --02:01 Jimenez Leonardo R.N. DISPOSITION / DISCHARGE Report was given to a nurse via a phone call. Report included patient's care, treatment, medications, reviewed medication reconcilliation, and condition (including any recent changes or anticipated changes). All questions were answered. Report was acknowledged. (TESS Ervin). --01:03 Jimenez Leonardo R.N. The goals identified in the patient's plan of care were met. SWEETIE COMA SCORE: [place] Coma Scale: 15- eyes open spontaneously (4); best verbal response- oriented x 4 (5); best motor response- obeys commands (6). --02:28 Jimenez Leonardo R.N. 02:27 01/25/17. BP: 127/64 (regular adult cuff) taken on the left arm, via an automated monitor, while lying. HR: 85 (regular and normal rate). RR: 22 (regular, unlabored and normal). O2 saturation: 92% on nasal cannula at 2 liters/minute. Temp: 98.1 F (oral). Pain level now: 0/10. --02:28 Jimenez Leonardo R.N. 02:32 01/25/17. O2 saturation: 93% on nasal cannula at 3 liters/minute. --02:32 Jimenez Leonardo R.N. 02:33 01/25/17. Report was given to a nurse via a phone call. Report included patient's care, treatment, medications, reviewed medication reconcilliation, and condition (including any recent changes or anticipated changes). All questions were answered. Report was acknowledged and care was transferred. (TESS Tenorio). --02:33 Jimenez Leonardo R.N. Departure time: 02:49. Transported via stretcher by nurse with monitor, IV and O2. Patient's personal items include: coat and shoes, [place]; items were transported with the patient. Collection of belongings was witnessed by 1 nurse. --02:49 Jimenez Leonardo R.N. Locked/Released at 01/25/2017 2:50 by Jimenez Leonardo R.N.
--- NOTE | 2017-01-24 23:53 | ED ORDER SUMMARY ---
..... Patient: PORFIRIO MO OrderSheet [facility] VisitID: [id number] [place] [address] 71y, F Registration Date/Time: 01/24/2017 ORDER SHEET Weight: 50.7 kg (measured) Allergies: morphine GENERAL ORDERS: Sink Maker (Continuous) (Respiratory Distress) (20:37 01/24/2017 Stephanie R.N. verbal order read back to Melody VIZCARRA) (20:38 JDeElena R.N.) Chest 1V Urgent (20:38 01/24/2017 Stephanie R.N. verbal order read back to Melody VIZCARRA) (Ack 20:39 Dao) (21:06 RFay) CBC w Diff Urgent (20:38 01/24/2017 Stephanie R.N. verbal order read back to Melody VIZCARRA) (Ack 20:39 Pitoimamoshe) (Cancelled: Duplicate Order20:44 JDeElena R.N.) CMP Urgent (20:38 01/24/2017 Stephanie R.N. verbal order read back to Melody VIZCARRA) (Ack 20:39 Pito[place]he) (Cancelled: Duplicate Order20:44 JDeElena R.N.) Cardiac Panel Stat (20:38 01/24/2017 Stephanie R.N. verbal order read back to Melody VIZCARRA) (Ack 20:39 Dao) (20:46 JDeElena R.N.) Oxygen (2 L/min) (NC) (20:38 01/24/2017 Stephanie R.N. verbal order read back to Melody VIZCARRA) (20:38 HortenciaDeElena R.N.) Pulse oximeter (20:38 01/24/2017 Stephanie R.N. verbal order read back to Melody VIZCARRA) (20:38 JDeElena R.N.) EKG - ER Stat (20:38 01/24/2017 Stephanie R.N. verbal order read back to Melody VIZCARRA) (20:38 HortenciaDeЮлия R.N.) ABG (G) Urgent (20:39 01/24/2017 JDeElena R.N. verbal order read back to Melody VIZCARRA) (Ack 20:39 Dao) (21:42 JDeElena R.N.) Non-Invasive Ventilator Start (BiPaP Please) Stat (20:39 01/24/2017 JDeElena R.N. verbal order read back to Melody VIZCARRA) (20:39 JDeElena R.N.) Lactate, Serum Urgent (20:47 01/24/2017 Melody VIZCARRA) (Ack 20:57 Dao) (21:21 JDeElena R.N.) PCT (Procalcitonin) Urgent (20:47 01/24/2017 Melody VIZCARRA) (20:49 JDeElena R.N.) BNP Urgent (22:05 01/24/2017 HortenciaDeElenmisty R.N. verbal order read back to Melody VIZCARRA) (22:22 JDeElena R.N.) Blood Culture (No) (N/A) Urgent (22:08 01/24/2017 Crow VIZCARRA) (22:22 JDeElena R.N.) ABG (G) Urgent (23:52 01/24/2017 Crow VIZCARRA) (0:12 JDeElena R.N.) MEDICATION ORDERS: IV FLUIDS: Solu-MEDROL IV 125 mg (NOW) (20:29 01/24/2017 JDeElena R.N. verbal order read back to Melody VIZCARRA) (Ack 20:29 JDeElena R.N.) (20:37 JDeElena R.N.) IV Saline Lock (20:38 01/24/2017 JDeElena R.N. verbal order read back to Melody VIZCARRA) (20:39 JDeElena R.N.) IV NS : initial bolus 1000 mL (1000 mL/hr), then none - (NOW) (22:06 01/24/2017 Crow VIZCARRA) (22:22 JDeElena R.N.) Rocephin IV 2 gm/50mL (NOW) (22:08 01/24/2017 Crow VIZCARRA) (22:22 JDeElena R.N.) Zithromax IV 500 mg/250 mL (NOW) (22:08 01/24/2017 Crow VIZCARRA) (k 22:22 Stephanie Ruiz) (22:55 Stephanie Ruiz) ORDER SHEET NOTES: [Electronically signed by Jimenez Leonardo R.N. (02:50 01/25/2017)] [Electronically signed by Cora Osborne MD (08:00 01/25/2017)] [Electronically locked/signed by Jimenez Leonardo R.N. (02:50 01/25/2017)]
--- NOTE | 2017-01-24 23:53 | ED CLINICAL REPORT ---
Clinical Report - Physicians/Mid Levels [facility] [address] [place] [address] 01/24/2017 20:14 Patient: PORFIRIO MO Time Seen: 20:25. Arrived- By ambulance. Historian- patient and EMS personnel. HISTORY OF PRESENT ILLNESS Chief Complaint: HISTORY OF CHRONIC OBSTRUCTIVE PULMONARY DISEASE. This started about 3 days ago and is still present and now worse. The dyspnea is severe. The dyspnea is worsened by exertion (nothing improves). The patient has had sputum production, a cough, wheezing, dyspnea on exertion and anxiety. No fever, sweating episodes, chills or chest pain or discomfort. No calf pain, foot swelling, dizziness, tingling or numbness. No palpitations. (PT was found to be in respiratory distress and hypoxic by EMS. She was given nebulized albuterol 10 mg and Atrovent 0.5 mg en-route.). Similar symptoms previously: Recent medical care: Not recently seen/assessed. REVIEW OF SYSTEMS The patient has not had weight loss. No muscle aches, eye irritation, sore throat, nasal discharge or sinus drainage. No nausea, vomiting, abdominal pain, diarrhea or black stools. No bloody stools, headache, fainting episodes, blurred vision or difficulty with urination. No skin rash, enlarged lymph nodes or joint pain. All systems otherwise negative, except as recorded above. PAST HISTORY Problems: Hyperlipidemia. Depression. Diverticulosis. Hypertension. Gastroesophageal Reflux. Atypical Chest Pain. Immunizations. Diverticulitis. COPD - Chronic Obstructive Pulmonary Disease. Additional Surgeries: Hysterectomy. Medications: Albuterol Sulfate Inhalation (Nebulization Solution (2.5 MG/3ML) 0.083%) 1 unit dose, PRN. Ventolin HFA Inhalation (Aerosol Solution 108 (90 Base) mcg/act), daily as needed. Ipratropium [place] Inhalation (Solution 0.02 %), daily. Atorvastatin Calcium Oral (Tablet 40 mg) 1 tablet, daily. Metoprolol Succinate ER Oral (Tablet Extended Release 24 Hour 25 mg) 1 tablet, daily. Omeprazole Oral 20 mg, daily. Mirtazapine Oral (Tablet 15 mg), daily. BuPROPion HCl Oral 150 mg, daily. Allergies: morphine. SOCIAL HISTORY Smoker- current status unknown. No alcohol use or drug use. ADDITIONAL NOTES The nursing notes have been reviewed. PHYSICAL EXAM Vital Signs: 01/24/2017 20:14 BP: 193/108. HR: 113. RR: 24. O2 saturation: 97%. Temp: 100.6 F. Pain level now: 0/10. Have been reviewed. Appearance: Alert. Patient in moderate distress. Eyes: Pupils equal, round and reactive to light. Eyes normal inspection. ENT: Nose normal. Neck: Normal inspection. Neck supple. CVS: Tachycardia. Heart sounds normal. Pulses normal. Respiratory: Moderate respiratory distress with accessory muscle use, anxiety and tachypnea. Speaks in single words. Fatigue. Moderately prolonged expirations. Moderately decreased air movement diffusely over both lungs. Expiratory mild bilateral wheezes diffusely. No rales. Abdomen: Soft and nontender. Back: Normal inspection. No CVA tenderness. Skin: Skin warm and dry. Normal skin color. No rash. Normal skin turgor. Extremities: No lower extremity edema. Neuro: No motor deficit. (Grossly intact.). LABS, X-RAYS, AND EKG EKG: EKG time: (2027). Rate: 114. Regular narrow-complex tachycardia. Sinus tachycardia. Right atrial enlargement. Normal ANUPAMA. Normal QRS complex. Right axis deviation. Normal QT and QTc. Non-specific ST segment / T wave abnormalities. Prior EKG unavailable. The study has been interpreted contemporaneously by me. The study has been independently viewed by me. The EKG appears to be a good tracing. I agree with and confirm the computer reading of the EKG. Rhythm Strip #1: Time: (2099). Rate= 108. Sinus tachycardia. Regular rhythm. Narrow QRS complexes. No ectopy. Conduction normal. Normal ST segments and T waves. The study was interpreted by me. Chest X-ray: Infiltrate in the right lower lobe. Small left pleural effusion present. Normal heart size. Mediastinum normal. Great vessels normal. Soft tissues normal. No fracture. No bony lesion present. Views: AP (portable). Technique: good. The X-rays were independently viewed by me, interpreted by the radiologist and contemporaneously by me and discussed with the radiologist. Prior films were not available for comparison. Laboratory Tests: CBC w Diff: (GIRMA: 01/24/2017 20:25) ( [facility]20) Final results Test Result Flag Units (Reference) WHITE BLOOD COUNT 27.5 *H K/uL (4.5-11.5) CRITICAL RESULTS CALLEDCalled to ZAKI HAIRSTON RN 01/24/17 2104Were 2 patient identifiers used? YWas the result read back? Y RED BLOOD COUNT 5.42 H M/uL (4.00-5.20) HEMOGLOBIN 14.3 gm/dL (12.0-16.0) HEMATOCRIT 44.8 % (36.0-46.0) MEAN CELL VOLUME 83 fL (80-100) MEAN CORPUSCULAR HGB 27 pg (26-34) MEAN CORPUSCULAR HGB CONC 32 g/dL (31-37) RED CELL DISTRIBUTION WIDTH 16.6 H % (11.6-14.8) PLATELET COUNT 364 K/uL (150-400) POLY % 85 H % (50-75) BAND % 2 % (0-8) LYMPH 7 L % (25-40) MONO 6 % (3-14) EOSINOPHIL % 0 % (0-4) BASOPHIL % 0 % (0-2) METAMYELOCYTE % 0 % (0-1) MYELOCYTE 0 % (0-1) OTHER CELL TYPE 0 BNP: (GIRMA: 01/24/2017 20:25) ( SdgRcvd 01/24/2017 22:34) Final results Test Result Flag Units (Reference) B-TYPE NATRIURETIC PEPTIDE 143 H pg/ml (5-100) Lactate, Serum: (GIRMA: 01/24/2017 21:00) ( MsgRcvd 01/24/2017 21:29) Final results Test Result Flag Units (Reference) LACTIC ACID 1.0 mmol/L (0.4-2.0) [id number]: (GIRMA: 01/24/2017 20:25) ( [facility] 01/24/2017 21:21) Final results Test Result Flag Units (Reference) PROCALCITONIN 0.7 H ng/mL (0-0.5) PCT Concentration: Interpretation : Risk/option for action PCT <=0.5 ng/mL : Systemic : Low risk forinfection(sepsis): progression to severeis not likely. : systemic infection.Local bacterial : CAUTION-PCT levelsinfection is : below 0.5 ng/mL do notpossible. : exclude an infection,because localizedinfections (withoutsystemic signs) may beassociated with suchlow levels. If PCT ismeasured very earlyafter a bacterialchallenge (usually <6hours), these valuesmay still be low. Inthis case PCT shouldbe re-assessed 6-24hours later. PCT >0.5 and : Systemic infection: Moderate risk for<= 2 ng/mL : (sepsis) is : progression to severepossible, but : systemic infection.other conditions : The patient should beare known to : closely monitoredelevate PCT. : both clinically andby re-assessing PCTwithin 6-24 hours. PCT > 2 ng/mL : Systemic infection: High risk for(sepsis) is likely: progression to severeunless other : systemic infection.causes are known. : PCT >= 10 ng/mL : Important systemic: High likelihood ofinflammatory : severe sepsis orresponse, almost : septic shock.exclusively due to:severe bacterial :sepsis or septic :shock. : CHEM 13 PANEL: (GIRMA: 01/24/2017 20:25) ( MsgRcvd 01/24/2017 20:59) Final results Test Result Flag Units (Reference) GLUCOSE 182 H mg/dL (70-110) BUN 15 mg/dL (7-18) CREATININE 0.8 mg/dL (0.6-1.3) Estimated GFR >60 mL/min Estimated GFR- >60 mL/min Note: Persistent reduction over 3 months in eGFR<60 mL/min/1.73 m2 defines CKD. Patients with eGFR values>=60 mL/min/1.73 m2 may also have CKD if evidence ofpersistent proteinuria. Additional information may be foundat www.kidney.org. SODIUM 142 mmol/L (136-145) POTASSIUM 3.2 L mmol/L (3.5-5.1) CHLORIDE 99 mmol/L (98-107) CARBON DIOXIDE 37 H mmol/L (21-32) CALCIUM 9.1 mg/dL (8.5-10.1) TOTAL PROTEIN 7.5 g/dL (6.4-8.2) ALBUMIN 3.2 L g/dL (3.3-5.0) BILIRUBIN, TOTAL 1.3 H mg/dL (0.0-1.0) ALKALINE PHOSPHATASE 107 U/L (46-116) AST (SGOT) 23 U/L (15-37) ALT (SGPT) 24 U/L (12-78) MAGNESIUM 1.6 L mg/dL (1.8-2.4) CPK 31 U/L (24-260) TROPONIN I <0.05 L ng/mL (0.00-1.5) TROPONIN REFERENCE RANGE:<0.1 NEGATIVE0.1-1.5 INDETERMINANT>1.5 POSITIVE ABG: (GIRMA: 01/24/2017 20:39) ( MsgRcvd 01/24/2017 21:14) Final results Test Result Flag Units (Reference) FIO2 40 % (20-101) ABG MODE OF DELIVERY BIPAP MODIFIED NILESH TEST POSITIVE? YES ABG VENT MODE BIPAP ABG TIDAL VOLUME 400 cc ABG PATIENT RESP RATE 21 /MIN ABG PRESSURE SUPPORT 10 cmH2O ARTERIAL BLOOD GAS SITE RR ARTERIAL BLOOD GAS pH 7.30 L (7.35-7.45) ABG PCO2 73.0 *H mmHg (35-45) ABG PO2 93.3 H mmHg (60.0-80.0) ABG BASE EXCESS 7.7 *H mmol/L (-6.0--6.0) ABG HCO3 35.6 *H mmol/L (20.0-26.0) ABG TCO2 37.9 *H mmol/L (24.0-30.0) ABG CuNpO7m 112.6 H mmHg (7.0-14.0) *NOTE: Normal rangeis based on aFIO2 of 21% ABG SAT O2 96.7 % (95.1-100.0) ABG TOTAL HEMOGLOBIN 13.9 g/dL (12.0-16.0) ABG O2 HEMOGLOBIN 95.1 % (95.0-100.0) ABG CARBOXYHEMOGLOBIN 1.8 H % (0.5-1.5) ABG METHEMOGLOBIN -0.1 L % (0.4-1.5) ABG RHEMOGLOBIN 3.2 % . Pulse Oximetry: 01/24/2017 20:14 O2 saturation: 97%. (FIO2 - room air). Interpretation: normal. PROGRESS AND PROCEDURES Course of Care: 20:42 01/24/17. Looks tired. Already albuterol 10 mg given. Bilateral decreased airmovement. Will try Bipap and then in 15 min Pt was evaluated immediately upon arrival. She was unimproved after 10 mg albuterol and 0.5 mg of Atrovent. She was given a dose of Solumedrol, but was clinically in respiratory failure, and ultimately, it became clear that the pt would need respiratory support. Pt was placed on BiPAP, and her respiratory status did improve. Initial ABG did show a respiratory acidosis with elevated pCO2. BiPAP settings were adjusted to rectify this. Pt's WBC count was significantly elevated at 27, and CXR showed bilateral mild infiltrates. Pt was given IV Rocephin and Zithromax for this. PT's lactate level was normal, but blood pressure did begin to progressively diminish. Pt's mental status remained the same (alert), and pt denied further complaints. She was started on a liter of NS, but BP continued to trend down, until SBP was 66. I suspected the BiPAP was the cause, and we did temporarily remove this. Pt's BP immediately improved. Pt stated she felt she did not need to be put back on BiPAP at this time, so she was allowed to stay off of it for the time-being. I did feel pt should be admitted for observation, at least. As she was a [facility] pt, I did speak with [facility]'s transfer physician, Dr. Jose Antonio Brothers, who did arrange transfer to [place] under Dr. Jorge Maynard. Pt and family did agree to this plan. Following this, Dr. Brothers did call back, and stated that [place] did not have any ICU beds, and that since pt may need to go back on BiPAP, she would need to be CCU status there. As such, they could not accept her in transfer after all, and Dr. Brothers did clear her to just be admitted here. Pt was agreeable to this plan. Critical care performed (75 minutes). Time is exclusive of separately billable procedures. Time includes: direct patient care, patient reassessment, coordination of patient care, interpretation of data (laboratory data, pulse oximetry, arterial blood gases, chest xrays and cardiac output measurements), review of patient's medical records, medical consultation, family consultation regarding treatment decisions and documentation of patient care- see progress notes. The patient required critical care due to the acute impairment of vital organ systems (cardiovascular and respiratory) and a high probability of imminent and life threatening deterioration. Multiple emergent interventions were required to prevent sudden life threatening deterioration. Discussed case with on-call health care provider, (Zev: arranged transfer). Reviewed test results and need for additional work-up. Agreed upon treatment plan. Discussed case with hospitalist, (Eder). Reviewed test results and need for additional work-up. Agreed upon treatment plan and decision to admit. Health care provider will see patient in hospital. Patient and family counseled in person several times regarding the patient's critical condition, test results, diagnosis and need for admission and transfer. Concerns were addressed. Old medical records reviewed. Disposition: Transferred to [facility]. Condition: stable and serious. CLINICAL IMPRESSION Acute respiratory failure with hypoxemia and hypercapnia. Acute exacerbation of COPD. Bacterial pneumonia with hypoxemia and respiratory failure. Vital signs recorded and reviewed; empiric antibiotics given in the ED. No sepsis. (Electronically signed by Cora Osborne MD 01/25/2017 8:00)
--- NOTE | 2017-01-24 23:53 | ED ORDER SUMMARY ---
..... Patient: PORFIRIO MO [facility]Sheet [facility] VisitID: [id number] [place] [address] 71y, F Registration Date/Time: 01/24/2017 ORDER SHEET Weight: 50.7 kg (measured) Allergies: morphine GENERAL ORDERS: Mud Cleaner Operator (Continuous) (Respiratory Distress) (20:37 01/24/2017 Stephanie R.N. verbal order read back to Melody VIZCARRA) (20:38 JDeElena R.N.) Chest 1V Urgent (20:38 01/24/2017 Stephanie R.N. verbal order read back to Melody VIZCARRA) (Ack 20:39 Dao) (21:06 RFay) CBC w Diff Urgent (20:38 01/24/2017 Stephanie R.N. verbal order read back to Melody VIZCARRA) (Ack 20:39 Pitoimamoshe) (Cancelled: Duplicate Order20:44 JDeElena R.N.) CMP Urgent (20:38 01/24/2017 Stephanie R.N. verbal order read back to Melody VIZCARRA) (Ack 20:39 Pitoimamoshe) (Cancelled: Duplicate Order20:44 JDeElena R.N.) Cardiac Panel Stat (20:38 01/24/2017 Stephanie R.N. verbal order read back to Melody VIZCARRA) (Ack 20:39 Dao) (20:46 JDeElena R.N.) Oxygen (2 L/min) (NC) (20:38 01/24/2017 Stephanie R.N. verbal order read back to Melody VIZCARRA) (20:38 HortenciaDeElena R.N.) Pulse oximeter (20:38 01/24/2017 Stephanie R.N. verbal order read back to Melody VIZCARRA) (20:38 JDeElena R.N.) EKG - ER Stat (20:38 01/24/2017 Stephanie R.N. verbal order read back to Melody VIZCARRA) (20:38 HortenciaDeЮлия R.N.) ABG (G) Urgent (20:39 01/24/2017 JDeElena R.N. verbal order read back to Melody VIZCARRA) (Ack 20:39 Dao) (21:42 JDeElena R.N.) Non-Invasive Ventilator Start (BiPaP Please) Stat (20:39 01/24/2017 JDeElena R.N. verbal order read back to Melody VIZCARRA) (20:39 JDeElena R.N.) Lactate, Serum Urgent (20:47 01/24/2017 Melody VIZCARRA) (Ack 20:57 Dao) (21:21 JDeElena R.N.) PCT (Procalcitonin) Urgent (20:47 01/24/2017 Melody VIZCARRA) (20:49 JDeElena R.N.) BNP Urgent (22:05 01/24/2017 HortenciaDeElenmisty R.N. verbal order read back to Melody VIZCARRA) (22:22 JDeElena R.N.) Blood Culture (No) (N/A) Urgent (22:08 01/24/2017 Crow VIZCARRA) (22:22 JDeElena R.N.) ABG (G) Urgent (23:52 01/24/2017 Crow VIZCARRA) (0:12 JDeElena R.N.) MEDICATION ORDERS: IV FLUIDS: Solu-MEDROL IV 125 mg (NOW) (20:29 01/24/2017 JDeElena R.N. verbal order read back to Melody VIZCARRA) (Ack 20:29 JDeElena R.N.) (20:37 JDeElena R.N.) IV Saline Lock (20:38 01/24/2017 JDeElena R.N. verbal order read back to Melody VIZCARRA) (20:39 JDeElena R.N.) IV NS : initial bolus 1000 mL (1000 mL/hr), then none - (NOW) (22:06 01/24/2017 Crow VIZCARRA) (22:22 JDeElena R.N.) Rocephin IV 2 gm/50mL (NOW) (22:08 01/24/2017 Crow VIZCARRA) (22:22 JDeElena R.N.) Zithromax IV 500 mg/250 mL (NOW) (22:08 01/24/2017 Crow VIZCARRA) (k 22:22 Stephanie Ruiz) (22:55 Stephanie Ruiz) ORDER SHEET NOTES: [Electronically signed by Jimenez Leonardo R.N. (02:50 01/25/2017)] [Electronically signed by Cora Osborne MD (08:00 01/25/2017)] [Electronically locked/signed by Jimenez Leonardo R.N. (02:50 01/25/2017)]
[2017-01-25] VITALS (23 sets, daily range): BP systolic 85–160; BP diastolic 44–86
[2017-01-25] MEDS ORDERED: ALBUTEROL SUL0.083 % IN (03:35)
[2017-01-25] MEDS ORDERED: ATORVASTATIN CA40 MG PO (04:20)
[2017-01-25] MEDS ORDERED: WELLBUTRIN SR150 MG PO (04:20)
[2017-01-25] MEDS ORDERED: IPRATROPIUM BR0.02 % IN (04:21)
[2017-01-25] MEDS ORDERED: METOPROLOL SUCC25 MG PO (04:21)
[2017-01-25] MEDS ORDERED: MIRTAZAPINE15 MG PO (04:21)
[2017-01-25] MEDS ORDERED: OMEPRAZOLE20 M1 PO (04:23)
[2017-01-25] MEDS ORDERED: VENTOLIN HFA IN (04:26)
--- NOTE | 2017-01-25 06:44 | HISTORY AND PHYSICAL ---
ADMITTED: 01/25/2017 HISTORY OF PRESENT ILLNESS: The patient is a 71-year-old white female who has a long history of COPD related to a very long smoking history with 2 packs per day at least. She is on home oxygen. She had been doing okay until about 3-4 days when she started to develop cold. This seemed to worsen. She has not had high fevers or chills, but became increasingly dyspneic, particularly this evening and called 911. She was in severe respiratory distress when she was found. She received 10 mg of albuterol from the time she was initially seen at home until the time she arrived in the emergency department. She was still quite markedly short of breath. On initially seeing in the emergency department, she was very dyspneic and somewhat hypertensive and could hardly speak due to the dyspnea. She was started on BiPAP in the emergency department and this seemed to help her quite a bit, though after being on it for an hour or so, she started have quite significant decline in systolic blood pressure and the BiPAP was discontinued. She was maintained on about to 2.5 to 3 L per minute by ventimask and has been doing okay with this. Her blood gases after the BiPAP been and on 3 liters per minute of oxygen showed a pH of 7.26, pO2 of 76.8 and pCO2 of 73.4. When she first arrived, blood gas showed a pH of 7.30, pCO2 of 93 and pCO2 of 73. Initially, the plan was to transfer this patient to [facility] to the care of a e commerce specialist. Due to lack ICU beds, she was not able to be transferred and has been admitted to the intensive care unit here. She did show evidence of infiltrate in the right lower lobe and left lower lobe and has been started on ceftriaxone and Zithromax. MEDICAL/SURGICAL HISTORY: Past medical history: Remarkable for longstanding severe chronic obstructive pulmonary disease related to smoking, hypertension, hyperlipidemia, depression, gastroesophageal reflux. Past surgical history is remarkable for hysterectomy and right shoulder surgery. She has had 3 children. MEDICATIONS: 1. Albuterol by nebulizer and ipratropium by nebulizer given independently. 2. The patient also uses atorvastatin 40 mg daily. 3. Has been on metoprolol succinate 25 mg daily. 4. Omeprazole 20 mg daily in the morning. 5. Mirtazapine 15 mg daily. 6. Bupropion 150 mg daily. ALLERGIES: 1. MORPHINE. SOCIAL HISTORY: Indicates the patient is living with a female partner - . She does have a long history of smoking. It is not clear whether she is still smoking. She has had problems with alcoholism in the remote past but has not had any alcohol to drink for many, many years, more than 20. FAMILY HISTORY: Remarkable for a father who around age 78 of congestive heart failure. The patient's mother around age 70 of dementia problems and peripheral vascular disease. REVIEW OF SYSTEMS: HEENT has been okay. Respiratory is as noted above. Cardiovascular has been okay with no major chest pain issues or extremely rapid heart rate issues. Gastrointestinal is okay with no nausea, vomiting, or diarrhea. Genitourinary is okay with no problems passing urine. Musculoskeletal is okay with no major bone or joint problems. Neurologic has been okay with no focal numbness or weakness. Psychiatric is remarkable for some depression which seems to be fairly well controlled. CODE STATUS: DISCUSSED WITH THE PATIENT AFTER ARRIVAL IN THE ICU. TO ME SHE STATED SHE WANTED TO BE A NO CODE IF HER HEART STOPPED BEATING AND DID NOT WANT CPR AND ALSO FELT SHE DID NOT WANT TO BE ON A VENTILATOR. SHE HAD INDICATED IN THE EMERGENCY DEPARTMENT TO DR. YUEN THAT SHE WISHED TO BE A FULL CODE. CONSIDERING THE DISCREPANCY, IT WOULD BEST TO KEEP HER A FULL CODE FOR THE TIME BEING AND SEE IF THINGS CAN BE SORTED OUT WITH HER AND INPUT FROM HER SPOUSE IN THE MORNING. PHYSICAL EXAMINATION: GENERAL: Reveals the patient to be dyspneic at rest, though improved from her arrival. VITAL SIGNS: Temperature is 98. Respiratory rate is about 20-25. Blood pressure is in the 150/72 range. Oxygen saturations about 90% on 3 liters via ventimask. HEENT: Head is normal. Ear canals and tympanic membranes are normal. Eyes show pupils equal, round, and reactive to light with normal extraocular movements. Nose and throat are clear. The patient has many missing teeth. NECK: Shows no adenopathy. Carotid pulses are normal. No distinct bruits are heard. CHEST: Reveals some scattered coarse rales and rhonchi with inspiration and very faint wheezing with expiration. The coarse rales and rhonchi are towards the bases. HEART: Reveals normal S1 and S2 with a grade 1/6 systolic murmur along the left sternal border. There is no axillary adenopathy. ABDOMEN: Nondistended. There is no distinct tenderness. Bowel tones are normal. PELVIC: Not done. RECTAL: Not done. EXTREMITIES: Show no edema. Peripheral pulses are +2 and normal. NEUROLOGIC: Reveals the patient to be oriented at least x2-1/2. She is not sure of the exact date. Her speech is somewhat hard to understand at times. Motor and sensory exams are normal. Cranial nerves are symmetric. LAB/IMAGING: Show white blood cell count of 27,600. Hemoglobin is 14.6, hematocrit is 46.6. Laboratory studies also show sodium to be 142, potassium 3.2, chloride 99, CO2 37, glucose 182, BUN 15, creatinine 0.8. Magnesium level 1.6. Total bilirubin is 1.3. SGOT is 23, SGPT is 24. CPK is 31. Troponin I is less than 0.05. BNP is 143. Lactic acid is 1.0. Procalcitonin is 0.7. EKG tracing is not immediately available, but per report shows sinus tachycardia with normal QRS and some nonspecific ST-T changes. Chest x-ray shows heart size to be normal. There is a small infiltrate in the left base and another in the right lower lung field with peribronchial cuffing noted. IMPRESSION: 1. The patient is presenting with exacerbation of chronic obstructive pulmonary disease which is probably due to recent upper respiratory infection. She may have an early pneumonia. 2. She also has a history of depression. 3. Hyperlipidemia 4. Gastroesophageal reflux 5. Hypertension. 6. She also shows decreased potassium and decreased magnesium. 7. She did not tolerate the BiPAP for a long period of time. 8. Additionally, CODE STATUS is not entirely clear. what she is telling me currently is not what she told the emergency room doctor when she initially arrived. PLAN: The patient is admitted to ICU for care with ongoing nebulizer treatments and administration of Solu-Medrol and careful monitoring oxygen status. If she deteriorates, it may be helpful to try BiPAP at a lower pressure. She will continue with ceftriaxone and azithromycin. SHE WILL CONTINUE TO BE A FULL CODE FOR NOW. She will continue with Solu-Medrol. She will have potassium and magnesium both replaced.
--- NOTE | 2017-01-25 08:00 | ED DISCHARGE INSTRUCTIONS ---
Patient: PORFIRIO MO General Instructions [facility] VisitID: [id number] [address] [place] [address] 71y, F Registration Date/Time: 01/24/2017 Acute respiratory failure with hypoxemia and hypercapnia. Acute exacerbation of COPD. Bacterial pneumonia with hypoxemia and respiratory failure. Vital signs recorded and reviewed; empiric antibiotics given in the ED. No sepsis. (Electronically signed by Cora Osborne MD 01/25/2017 8:00)
--- NOTE | 2017-01-25 08:00 | ED DISCHARGE INSTRUCTIONS ---
Patient: PORFIRIO MO General Instructions [facility] VisitID: [id number] [address] [place] [address] 71y, F Registration Date/Time: 01/24/2017 Acute respiratory failure with hypoxemia and hypercapnia. Acute exacerbation of COPD. Bacterial pneumonia with hypoxemia and respiratory failure. Vital signs recorded and reviewed; empiric antibiotics given in the ED. No sepsis. (Electronically signed by Cora Osborne MD 01/25/2017 8:00)
--- NOTE | 2017-01-25 08:00 | ED MAR SUMMARY ---
..... Medication Administration Record [facility] [address] [place] [address] Patient: PORFIRIO MO Visit ID: [id number] 71y, F Weight: 50.7 kg Height/Length: 60 in BMI: 21.8 ALLERGIES: morphine Given 20:37 01/24/2017 Jimenez Leonardo R.N. Medication Administered: SOLU-MEDROL [IVP] (METHYLPREDNISOLONE SODIUM SUCC), Dose: 125 mg IVP over 2 minute(s), Site: #1 right AC. Medication Ordered: Solu-MEDROL IV 125 mg (NOW). Start 22:22 01/24/2017 Jimenez Leonardo R.N., Stop 00:12 01/25/2017 Jimenez Leonardo R.N. Medication Administered: IV NS (SALINE), Dose: IV Fluids over 1 hour(s), Rate: 1000 mL/hr, Dispensed: 1000 mL bag, Site: #1 right AC. Medication Ordered: IV NS : initial bolus 1000 mL (1000 mL/hr), then none - (NOW). Start 22:22 01/24/2017 Jimenez Leonardo R.N., Stop 22:45 01/24/2017 Jimenez Leonardo R.N. Medication Administered: ROCEPHIN [IVPB] (CEFTRIAXONE SODIUM), Dose: 2 gm IVPB over 30 minute(s), Rate: 100 mL/hr, Dispensed: 50 mL bag, Site: #1 right AC. Medication Ordered: Rocephin IV 2 gm/50mL (NOW). Start 22:55 01/24/2017 Jimenez Leonardo R.N., Stop 00:12 01/25/2017 Jimenez Leonardo R.N. Medication Administered: ZITHROMAX [IVPB] (AZITHROMYCIN), Dose: 250 mg IVPB over 1 hour(s), Rate: 250 mL/hr, Dispensed: 250 mL bag, Site: #1 right AC. Medication Ordered: Zithromax IV 500 mg/250 mL (NOW).
--- NOTE | 2017-01-25 08:00 | ED MAR SUMMARY ---
..... Medication Administration Record [facility] [address] [place] [address] Patient: PORFIRIO MO Visit ID: [id number] 71y, F Weight: 50.7 kg Height/Length: 60 in BMI: 21.8 ALLERGIES: morphine Given 20:37 01/24/2017 Jimenez Leonardo R.N. Medication Administered: SOLU-MEDROL [IVP] (METHYLPREDNISOLONE SODIUM SUCC), Dose: 125 mg IVP over 2 minute(s), Site: #1 right AC. Medication Ordered: Solu-MEDROL IV 125 mg (NOW). Start 22:22 01/24/2017 Jimenez Leonardo R.N., Stop 00:12 01/25/2017 Jimenez Leonardo R.N. Medication Administered: IV NS (SALINE), Dose: IV Fluids over 1 hour(s), Rate: 1000 mL/hr, Dispensed: 1000 mL bag, Site: #1 right AC. Medication Ordered: IV NS : initial bolus 1000 mL (1000 mL/hr), then none - (NOW). Start 22:22 01/24/2017 Jimenez Leonardo R.N., Stop 22:45 01/24/2017 Jimenez Leonardo R.N. Medication Administered: ROCEPHIN [IVPB] (CEFTRIAXONE SODIUM), Dose: 2 gm IVPB over 30 minute(s), Rate: 100 mL/hr, Dispensed: 50 mL bag, Site: #1 right AC. Medication Ordered: Rocephin IV 2 gm/50mL (NOW). Start 22:55 01/24/2017 Jimenez Leonardo R.N., Stop 00:12 01/25/2017 Jimenez Leonardo R.N. Medication Administered: ZITHROMAX [IVPB] (AZITHROMYCIN), Dose: 250 mg IVPB over 1 hour(s), Rate: 250 mL/hr, Dispensed: 250 mL bag, Site: #1 right AC. Medication Ordered: Zithromax IV 500 mg/250 mL (NOW).
--- NOTE | 2017-01-25 08:01 | ED MED RECONCILIATION SUMMARY ---
Patient: PORFIRIO MO Medication Reconciliation Report [facility] VisitID: [id number] [address] [place] [address] 71y, F Registration Date/Time: 01/24/2017 Weight: 50.7 kg Height/Length: 60 in. BMI: 21.8 ALLERGIES: morphine The patient's Home Medications are listed below: THE FOLLOWING MEDICATIONS NEED TO BE RECONCILED: Albuterol Sulfate Inhalation ((2.5 MG/3ML) 0.083%) 1 unit dose, PRN Atorvastatin Calcium Oral (40 mg) 1 tablet, daily BuPROPion HCl Oral 150 mg, daily Ipratropium [place] Inhalation (0.02 %), daily Metoprolol Succinate ER Oral (25 mg) 1 tablet, daily Mirtazapine Oral (15 mg), daily Omeprazole Oral 20 mg, daily Ventolin HFA Inhalation (108 (90 Base) mcg/act), daily The source(s) of the original Home Medication information: patient's spouse The following Medications were given to the patient in the Emergency Department: SOLU-MEDROL [IVP] IVP 125 mg, administered: 01/24/2017 8:37:00 PM Rocephin [IVPB] IVPB bolus 0, then 2 gm 100 mL/hr, administered: 01/24/2017 10:22:00 PM IV NS IV Fluids bolus 0, then 1000 mL/hr, administered: 01/24/2017 10:22:00 PM Zithromax [IVPB] IVPB bolus 0, then 250 mg 250 mL/hr, administered: 01/24/2017 10:55:00 PM The following Medications were prescribed to the patient: None.
--- NOTE | 2017-01-25 08:01 | ED MED RECONCILIATION SUMMARY ---
Patient: PORFIRIO MO Medication Reconciliation Report [facility] VisitID: [id number] [address] [place] [address] 71y, F Registration Date/Time: 01/24/2017 Weight: 50.7 kg Height/Length: 60 in. BMI: 21.8 ALLERGIES: morphine The patient's Home Medications are listed below: THE FOLLOWING MEDICATIONS NEED TO BE RECONCILED: Albuterol Sulfate Inhalation ((2.5 MG/3ML) 0.083%) 1 unit dose, PRN Atorvastatin Calcium Oral (40 mg) 1 tablet, daily BuPROPion HCl Oral 150 mg, daily Ipratropium [place] Inhalation (0.02 %), daily Metoprolol Succinate ER Oral (25 mg) 1 tablet, daily Mirtazapine Oral (15 mg), daily Omeprazole Oral 20 mg, daily Ventolin HFA Inhalation (108 (90 Base) mcg/act), daily The source(s) of the original Home Medication information: patient's spouse The following Medications were given to the patient in the Emergency Department: SOLU-MEDROL [IVP] IVP 125 mg, administered: 01/24/2017 8:37:00 PM Rocephin [IVPB] IVPB bolus 0, then 2 gm 100 mL/hr, administered: 01/24/2017 10:22:00 PM IV NS IV Fluids bolus 0, then 1000 mL/hr, administered: 01/24/2017 10:22:00 PM Zithromax [IVPB] IVPB bolus 0, then 250 mg 250 mL/hr, administered: 01/24/2017 10:55:00 PM The following Medications were prescribed to the patient: None.
--- NOTE | 2017-01-25 08:52 | Progress Note ---
Subjective General Note Date: January 25, 2017 Admission Date: January 25, 2017 Hospital Day: 1 PCP: Unknown Status: Inpatient Advanced Directive: Full Code Room: 305 Brief History: The patient is a 71-year-old white female with a significant past medical history of COPD, nicotine dependence-smoking, hypertension, hyperlipidemia, depression, gastroesophageal reflux, who presented to [facility] emergency department on the day of admission secondary to complaints of shortness of breath. [facility] ER evaluation was consistent with pneumonia, exacerbation of COPD. Secondary to the above, the patient was admitted by Reese Gaines M.D. for further evaluation and treatment. For other history present illness, past medical history, family history, social history, review of systems, and admission physical examination please see the patient's history and physical examination and ER visit note in the patient's medical record. Subjective: The patient status remains unchanged. Remains short of breath with mild respiratory distress. No specific complaints at this time. Patient requests: None Medications and Allergies Medications Current Medications Sig/Ronald Start time Last Medication Dose Route Stop Time Status Admin Azithromycin 500 MG DAILY@0 01/25 2200 AC Sodium Chloride 250 ML IV 01/27 2300 Ceftriaxone Sodium/ 50 ML DAILY@2100 01/25 2100 AC Dextrose IV Mirtazapine 15 MG 1800 01/25 1800 AC PO Bupropion HCl 150 MG DAILY 01/25 0900 AC PO Metoprolol Succinate 25 MG DAILY 01/25 0900 AC PO Potassium Chloride 10 MEQ BID 01/25 0900 AC PO Albuterol/Ipratropium 3 ML RTQ6H 01/25 0800 AC 01/25 IN 0827 Methylprednisolone 125 MG Q6HR 01/25 0600 AC 01/25 Sodium Succinate IV 0542 Pantoprazole Sodium 40 MG DAILY@0600 01/25 0600 AC 01/25 IV 0542 Sodium Chloride/ 1,000 ML ASDIRECTED 01/25 0515 AC 01/25 Electrolytes IV 0542 Allergies Coded Allergies: Morphine (Mild, VOMITING 01/25/17) No Known Environmental Allergies (07/28/13) No Known Food Allergy (07/28/13) No Known Latex Allergy (07/28/13) Physical Exam Vital Signs / I&Os Vital Signs Date Time Temp Pulse Resp B/P Pulse O2 O2 Flow FiO2 Ox Delivery Rate 01/25 0829 3.0 01/25 0824 68 17 99/51 93 Nasal 3.0 Cannula 04/02 0706 84 21 128/66 91 Nasal 3.0 Cannula 04/02 0600 98.1 82 22 141/69 95 Mask 3.0 04/02 0500 90 22 131/66 95 Mask 3.0 04/02 0434 8.0 04/02 0400 88 23 138/75 95 Mask 3.0 04/02 0316 Nasal 3.0 Cannula 04/02 0300 88 21 134/68 95 Mask 3.0 04/02 0249 98.2 93 17 150/72 90 Nasal 3.0 Cannula 04/02 0010 3.0 General Appearance Alert, Cooperative, Mild distress Lungs Decreased airmovement bilaterally, minimal exp. wheezes Cardiovascular Regular rate and rhythm, Normal S1 and S2 Abdomen Normal bowel sounds, Soft, No tenderness Extremities No cyanosis, No clubbing, No edema Neurological Cranial nerves intact, No lateralizing signs Psych/Mental Status Mental status normal, Mood normal LAB Results Laboratory Tests 01/24 01/24 01/24 01/24 01/24 2352 2100 9 2037 2024 Blood Gas Sample Site RR RR Total CO2 (24.0 - 30.0 mmol/L) 35.6 37.9 ABG pH (7.35 - 7.45) 7.26 7.30 ABG pCO2 at Pt Temp (35 - 45 mmHg) 73.8 73.0 ABG pO2 at Pt Temp (60.0 - 80.0 mmHg) 76.8 93.3 ABG HCO3 (20.0 - 26.0 mmol/L) 33.4 35.6 ABG O2 Sat Calc/Susanne (95.1 - 100.0 %) 93.8 96.7 ABG Base Excess (-6.0 - -6.0 mmol/L) 5.4 7.7 ABG Reduced Hgb (%) 6.1 3.2 ABG Carboxyhemoglobin (0.5 - 1.5 %) 1.7 1.8 ABG Methemoglobin (0.4 - 1.5 %) 0.0 -0.1 Ayo Test YES YES Other Total Hgb (12.0 - 16.0 g/dL) 12.4 13.9 A-a O2 Gradient (7.0 - 14.0 mmHg) 70.1 112.6 Hgb O2 Saturation (95.0 - 100.0 %) 92.2 95.1 Respiration Rate (/MIN) 21 21 O2 Liters/Min (0 - 20 L/MIN) 3 Vent Mode NC BIPAP FiO2 (20 - 101 %) 32 40 Tidal Volume (cc) 400 Pressure Support (cmH2O) 10 Chemistry Plasma Sodium Cancelled Plasma Potassium Cancelled Plasma Chloride Cancelled CO2 (Enzymatic) Cancelled BUN Cancelled Creatinine Cancelled Est GFR ( Amer) Cancelled Est GFR (Non-Af Amer) Cancelled Glucose Cancelled Lactic Acid (0.4 - 2.0 mmol/L) 1.0 Plasma Calcium Cancelled Total Bilirubin Cancelled AST Cancelled ALT Cancelled Alkaline Phosphatase Cancelled Total Protein Cancelled Albumin Cancelled Procalcitonin (0 - 0.5 ng/mL) 0.7 01/24 Chemistry Plasma Sodium (136 - 145 mmol/L) 142 Plasma Potassium (3.5 - 5.1 mmol/L) 3.2 Plasma Chloride (98 - 107 mmol/L) 99 CO2 (Enzymatic) (21 - 32 mmol/L) 37 BUN (7 - 18 mg/dL) 15 Creatinine (0.6 - 1.3 mg/dL) 0.8 Est GFR ( Amer) (mL/min) >60 Est GFR (Non-Af Amer) (mL/min) >60 Glucose (70 - 110 mg/dL) 182 Plasma Calcium (8.5 - 10.1 mg/dL) 9.1 Plasma Magnesium (1.8 - 2.4 mg/dL) 1.6 Total Bilirubin (0.0 - 1.0 mg/dL) 1.3 AST (15 - 37 U/L) 23 ALT (12 - 78 U/L) 24 Alkaline Phosphatase (46 - 116 U/L) 107 Creatine Kinase (24 - 260 U/L) 31 Troponin (0.00 - 1.5 ng/mL) <0.05 B-Natriuretic Peptide (5 - 100 pg/ml) 143 Total Protein (6.4 - 8.2 g/dL) 7.5 Albumin (3.3 - 5.0 g/dL) 3.2 Hematology WBC (4.5 - 11.5 K/uL) 27.5 RBC (4.00 - 5.20 M/uL) 5.42 Hgb (12.0 - 16.0 gm/dL) 14.3 Hct (36.0 - 46.0 %) 44.8 MCV (80 - 100 fL) 83 MCH (26 - 34 pg) 27 RDW (11.6 - 14.8 %) 16.6 Neut % (Auto) (50 - 75 %) 85 Lymph % (Auto) (25 - 40 %) 7 [place] % (Auto) (3 - 14 %) 6 Eos % (Auto) (0 - 4 %) 0 Baso % (Auto) (0 - 2 %) 0 Band Neutrophils % (0 - 8 %) 2 Metamyelocytes % (0 - 1 %) 0 Myelocytes (0 - 1 %) 0 Other Cell Type 0 Plt Count, EDTA (150 - 400 K/uL) 364 PUBS MCHC (31 - 37 g/dL) 32 Microbiology Date/Time Procedure - Status Source Growth 01/25 0325 MRSA Screen - RECD NASAL 01/24 2233 Blood Culture - RECD BLOOD 01/24 2215 Blood Culture - RECD BLOOD Imaging Chest X-Ray IMPRESSION: 1. Interval development of minor alveolar irregularity left lower lobe and right lower lobe peribronchial thickening. Possible small left effusion. 2. Findings of COPD/emphysema. Dictated by: TINO WALLS MD D: ROLAND;01/24/17 221 Assessment and Plan Problem List 1. COPD exacerbation Plan -Patient presents with findings of exacerbation of COPD. -DuoNeb, albuterol, IV Solu-Medrol -Supplemental oxygen to keep pulse oximetry 88-90% -Patient refuses intubation, DNR/DNI -Patient will except BiPAP if necessary. 2. Pneumonia Plan -Patient with findings of pneumonia -Rocephin/Zithromax -Monitor 3. Respiratory failure Plan -Patient with findings of hypercarbic/hypoxic respiratory failure -Recheck arterial blood gas -BiPAP as necessary -Monitor -Avoid sedative medications, DC Ativan 4. Hypertension Status Chronic Onset Date Unknown Plan -Stable -Monitor -Low-salt diet 5. Hypokalemia Status Acute Onset Date Unknown Plan -Patient with mild hypokalemia -IV supplementation -Monitor 6. Hypomagnesemia Status Acute Onset Date Unknown Plan -Patient with findings of hypomagnesemia -IV/by mouth supplementation -Monitor 7. Hyperglycemia Status Acute Onset Date Unknown Plan -Patient with mild hyperglycemia -Most likely exacerbated by stress/corticosteroid -Check hemoglobin A1c -Monitor with insulin sliding scale as necessary 8. 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
[2017-01-26] VITALS (27 sets, daily range): BP systolic 87–200; BP diastolic 53–106
--- NOTE | 2017-01-26 07:59 | Progress Note ---
Subjective General Note Date: January 26, 2017 Admission Date: January 25, 2017 Hospital Day: 2 PCP: Unknown Status: Inpatient Advanced Directive: Full Code Room: 305 Brief History: The patient is a 71-year-old white female with a significant past medical history of COPD, nicotine dependence-smoking, hypertension, hyperlipidemia, depression, gastroesophageal reflux, who presented to [facility] emergency department on the day of admission secondary to complaints of shortness of breath. [facility] ER evaluation was consistent with pneumonia, exacerbation of COPD. Secondary to the above, the patient was admitted by Reese Gaines M.D. for further evaluation and treatment. For other history present illness, past medical history, family history, social history, review of systems, and admission physical examination please see the patient's history and physical examination and ER visit note in the patient's medical record. Subjective: The patient status remains unchanged. Slightly lethargic with intermittent agitation noted. Continues with BiPAP therapy intermittently. Patient requests: No significant Medications and Allergies Medications Current Medications Sig/Ronald Start time Last Medication Dose Route Stop Time Status Admin Nitroglycerin 1 GM Q6HR 01/26 0700 AC 01/26 TOP 0639 Methylprednisolone 40 MG Q6HR / 0000 AC 01/26 Sodium Succinate IV 0636 Azithromycin 500 MG DAILY@01/25 2200 AC 01/25 Sodium Chloride 250 ML IV 01/27 2300 2214 Magnesium Chloride 535 MG TID 01/25 2200 AC PO Ceftriaxone Sodium/ 50 ML DAILY@2100 01/25 2100 AC 01/25 Dextrose IV 2127 Mirtazapine 15 MG 1800 01/25 1800 AC 01/25 PO 1836 Lorazepam 0.5 MG Q8H PRN 01/25 1530 AC 01/25 PO 1543 Bupropion HCl 150 MG DAILY 01/25 0900 AC 01/25 PO 1205 Metoprolol Succinate 25 MG DAILY 01/25 0900 AC 01/25 PO 1041 Potassium Chloride 10 MEQ BID 01/25 0900 AC 01/25 PO 1041 Albuterol/Ipratropium 3 ML RTQ6H 01/25 0800 AC 01/26 IN 0741 Pantoprazole Sodium 40 MG DAILY@0600 01/25 0600 AC 01/26 IV 0636 Sodium Chloride/ 1,000 ML ASDIRECTED 01/25 0515 AC 01/25 Electrolytes IV 204 Allergies Coded Allergies: Morphine (Mild, VOMITING 01/25/17) No Known Environmental Allergies (07/28/13) No Known Food Allergy (07/28/13) No Known Latex Allergy (07/28/13) Physical Exam Vital Signs / I&Os Vital Signs Date Time Temp Pulse Resp B/P Pulse O2 O2 Flow FiO2 Ox Delivery Rate 04/03 0701 168/95 04/03 0650 97.5 94 21 91 Bipap 04/03 0627 101 21 199/75 91 Bipap 2.0 04/03 0517 74 20 119/64 94 Bipap 30 04/03 0410 95 20 181/99 94 Bipap 2.0 04/03 0315 182/101 04/03 0300 92 19 178/94 94 Bipap 2.0 04/03 0249 2.0 04/03 0200 82 19 144/88 93 Bipap 2.0 04/03 0100 75 21 162/82 93 Bipap 3.0 04/03 0001 81 20 147/78 93 Bipap 3.0 04/02 2300 97.5 80 21 160/86 96 Bipap 3.0 04/02 2210 97.7 77 22 146/77 92 Bipap 30 04/02 2145 73 20 146/77 95 Bipap 3.0 04/02 2103 97.2 68 22 119/66 93 Bipap 30 04/02 2033 3.0 04/02 2020 97.9 80 20 138/63 89 Mask 2.5 04/02 2002 93 Mask 3.0 04/02 1958 Mask 2.5 04/02 1905 97.9 72 21 122/63 91 Mask 1.5 04/02 1817 98.4 75 19 147/77 94 Mask 3.0 04/02 1704 989.1 85 18 121/62 92 Mask 3.0 04/02 1601 97.5 77 16 111/59 91 Mask 3.0 04/02 1502 88 15 144/76 92 Mask 3.0 04/02 1400 97.2 77 18 137/65 99 Mask 3.0 04/02 1346 3.0 04/02 1312 91/46 04/02 1310 65 19 85/44 98 Mask 3.0 04/02 1244 74 20 127/66 97 Mask 3.0 04/02 1049 97.0 91 18 137/68 87 Mask 3.0 04/02 0912 89 Nasal 4.0 Cannula 04/02 0911 87 21 158/78 85 Nasal 3.0 Cannula 01/25 0900 3.0 01/25 08 3.0 01/25 08 68 17 99/51 93 Nasal 3.0 Cannula I&O 01/26 0000 01/25 1600 01/25 0800 Intake Total 120 240 100 Output Total 25 300 225 Balance 95 -60 -125 General Appearance Cooperative, Mild distress, lethargic with intermittent agitation Lungs decreased air movement bilaterally. Diffuse rhonchi. Mild expiratory wheezes. Cardiovascular Regular rate and rhythm, Normal S1 and S2 Abdomen Normal bowel sounds, Soft, No tenderness Extremities No cyanosis, No clubbing Neurological Cranial nerves intact, No lateralizing signs Psych/Mental Status Confused LAB Results Laboratory Tests 01/26 01/26 01/25 0440 0001 2053 Blood Gas Sample Site RR Total CO2 (24.0 - 30.0 mmol/L) 34.3 ABG pH (7.35 - 7.45) 7.32 ABG pCO2 at Pt Temp (35 - 45 mmHg) 62.8 ABG pO2 at Pt Temp (60.0 - 80.0 mmHg) 68.1 ABG HCO3 (20.0 - 26.0 mmol/L) 32.4 ABG O2 Sat Calc/Suasnne (95.1 - 100.0 %) 94.2 ABG Base Excess (-6.0 - -6.0 mmol/L) 5.5 ABG Reduced Hgb (%) 5.7 ABG Carboxyhemoglobin (0.5 - 1.5 %) 1.4 ABG Methemoglobin (0.4 - 1.5 %) -0.1 Ayo Test NO Other Total Hgb (12.0 - 16.0 g/dL) 12.2 A-a O2 Gradient (7.0 - 14.0 mmHg) 0.0 Hgb O2 Saturation (95.0 - 100.0 %) 93.0 Respiration Rate (/MIN) 12 Vent Mode S/T FiO2 (20 - 101 %) 30 PEEP (cmH2O) 4 Pressure Support (cmH2O) 8 Blood Gas Comments [id number] Chemistry Plasma Sodium (136 - 145 mmol/L) 150 Plasma Potassium (3.5 - 5.1 mmol/L) 4.2 Plasma Chloride (98 - 107 mmol/L) 110 CO2 (Enzymatic) (21 - 32 mmol/L) 32 BUN (7 - 18 mg/dL) 24 Creatinine (0.6 - 1.3 mg/dL) 0.8 Est GFR ( Amer) (mL/min) >60 Est GFR (Non-Af Amer) (mL/min) >60 Glucose (70 - 110 mg/dL) 135 Plasma Calcium (8.5 - 10.1 mg/dL) 8.8 Plasma Magnesium (1.8 - 2.4 mg/dL) 2.1 Hematology WBC (4.5 - 11.5 K/uL) 23.0 RBC (4.00 - 5.20 M/uL) 4.74 Hgb (12.0 - 16.0 gm/dL) 12.3 Hct (36.0 - 46.0 %) 39.5 MCV (80 - 100 fL) 83 MCH (26 - 34 pg) 26 RDW (11.6 - 14.8 %) 16.9 Neut % (Auto) (50 - 75 %) 66 Lymph % (Auto) (25 - 40 %) 3 [place] % (Auto) (3 - 14 %) 2 Eos % (Auto) (0 - 4 %) 0 Baso % (Auto) (0 - 2 %) 0 Band Neutrophils % (0 - 8 %) 29 Metamyelocytes % (0 - 1 %) 0 Myelocytes (0 - 1 %) 0 Other Cell Type 0 Plt Count, EDTA (150 - 400 K/uL) 359 Anisocytosis (manual) 1+ PUBS MCHC (31 - 37 g/dL) 31 Urines Urine Color YELLOW Urine Appearance CLEAR Urine pH (5.0 - 8.0) 6.0 Ur Specific [place] (1.010 - 1.030) >= 1.030 Urine Protein (NEGATIVE) TRACE Urine Ketones (NEGATIVE) NEGATIVE Urine Blood (NEGATIVE) NEGATIVE Urine Nitrite (NEGATIVE) NEGATIVE Urine Bilirubin (NEGATIVE) NEGATIVE Urine Urobilinogen (0.2 - 1.0 EU/dL) 0.2 Ur Leukocyte Esterase (NEGATIVE) NEGATIVE Urine RBC (0 - 1 rbc/hpf) 0-1 Urine WBC (0 - 1 wbc/hpf) 0-1 Ur Epithelial Cells (0 - 5 EPI/hpf) 0-1 Urine Bacteria (NONE SEEN) NONE SEEN Urine Glucose (NEGATIVE) NEGATIVE Urine Comment CULT NOT INDICATED 01/25 01/25 4218 7830 Blood Gas Sample Site RB Total CO2 (24.0 - 30.0 mmol/L) 27.7 ABG pH (7.35 - 7.45) 7.26 ABG pCO2 at Pt Temp (35 - 45 mmHg) 58.4 ABG pO2 at Pt Temp (60.0 - 80.0 mmHg) 46.6 ABG HCO3 (20.0 - 26.0 mmol/L) 25.9 ABG O2 Sat Calc/Susanne (95.1 - 100.0 %) 80.0 ABG Base Excess (-6.0 - -6.0 mmol/L) -1.2 ABG Reduced Hgb (%) 19.7 ABG Carboxyhemoglobin (0.5 - 1.5 %) 1.5 ABG Methemoglobin (0.4 - 1.5 %) 0.0 Ayo Test YES Other Total Hgb (12.0 - 16.0 g/dL) 10.2 A-a O2 Gradient (7.0 - 14.0 mmHg) 117.2 Hgb O2 Saturation (95.0 - 100.0 %) 78.8 O2 Liters/Min (0 - 20 L/MIN) 3 FiO2 (20 - 101 %) 32 Blood Gas Comments Pending Hematology WBC (4.5 - 11.5 K/uL) 24.1 RBC (4.00 - 5.20 M/uL) 4.91 Hgb (12.0 - 16.0 gm/dL) 12.9 Hct (36.0 - 46.0 %) 40.4 MCV (80 - 100 fL) 82 MCH (26 - 34 pg) 26 RDW (11.6 - 14.8 %) 17.0 Neut % (Auto) (50 - 75 %) 87 Lymph % (Auto) (25 - 40 %) 8 Hind[place] % (Auto) (3 - 14 %) 1 Eos % (Auto) (0 - 4 %) 0 Baso % (Auto) (0 - 2 %) 0 Band Neutrophils % (0 - 8 %) 4 Metamyelocytes % (0 - 1 %) 0 Myelocytes (0 - 1 %) 0 Other Cell Type 0 Plt Count, EDTA (150 - 400 K/uL) 347 Anisocytosis (manual) 1+ Ovalocytes 1+ PUBS MCHC (31 - 37 g/dL) 32 Assessment and Plan Problem List 1. COPD exacerbation Plan -Patient with findings of COPD exacerbation -Continue DuoNeb, albuterol, IV corticosteroids -Supplemental oxygen to keep pulse oximetry 88-90% -BiPAP as needed -Monitor -Prognosis guarded. This was discussed with the patient's significant other. 2. Pneumonia Plan -Patient with findings of pneumonia -Persistent leukocytosis -Obtain follow-up Procalcitonin, chest x-ray -Continue Rocephin/Zithromax -Consider adjustments in antimicrobial therapy based on chest x-ray findings and Procalcitonin level. -Await sputum C&S 3. Respiratory failure Plan -See above -Persistent hypoxic/hypercarbic respiratory failure -BiPAP as necessary -Patient DNR/DNI -Prognosis guarded 4. Hypertension Status Chronic Onset Date Unknown Plan -Patient with elevated blood pressure this p.m. -Begin lisinopril -When necessary hydralazine -Monitor 5. Hypokalemia Status Acute Onset Date Unknown Plan -Resolved -Potassium 4.2 -Monitor 6. Hypomagnesemia Status Acute Onset Date Unknown Plan -Resolved -Magnesium 2.1 -Monitor 7. Hyperglycemia Status Acute Onset Date Unknown Plan -Patient with findings of hyperglycemia -Insulin signed scale -Monitor before meals and at bedtime 8. Hypernatremia Status Acute Onset Date 01/26/17 Plan -Patient with findings of mild hyponatremia -Change IV fluids to D5 0.2 normal saline -Monitor 9. Hyperbilirubinemia Status Acute Onset Date Unknown Plan -Patient with findings of mild hyperbilirubinemia -Recheck in a.m. Current status: Critical, unstable Anticipated discharge date: Anticipated discharge in 3-4 days Anticipated discharge placement: Home versus long term facility Patient care time: Time spent in chart review, patient interview, physical exam, CPOE, and care documentation: 35 minutes Visit to patient today: 3 Complexity of care: High E&M Codes Rounding: Inpt-High/[id number]
--- NOTE | 2017-01-26 20:10 | DIAGNOSTIC IMAGING REPORT ---
PROCEDURE: XR CHEST 1 VIEW INDICATION: PNEUMONIA,SOB,COPD TECHNIQUE: Portable AP view 07:39 a.m. COMPARISON: Chest 01/24/2017 FINDINGS: New right lower lobe infiltrate. Small right pleural effusion. Left lung is clear. IMPRESSION: 1. New right lower lobe infiltrate.
[2017-01-27] VITALS (23 sets, daily range): BP systolic 106–164; BP diastolic 48–85
--- NOTE | 2017-01-27 18:28 | Progress Note ---
Subjective General Pt seen and examined. Patient is altered and does not respond to questions well. Patient is otherwise hemodynamically stable. Patient has been continously low in terms of oxygen saturation. Patient placed on bipap with little resistance, will continue to monitor and trend lab work. Constitutional Other (unable to respond- altered ). Physical Exam Vital Signs / I&Os Vital Signs Date Time Temp Pulse Resp B/P Pulse O2 O2 Flow FiO2 Ox Delivery Rate 01/27 1802 98 16 122/48 91 Nasal 3.0 Cannula 04/ 1754 3.0 04/ 1708 101 16 139/72 91 Bipap 30 04/04 1615 87 23 130/60 95 Bipap 30 04/04 1500 97.9 89 25 122/67 93 Bipap 30 04/ 1414 90 22 137/70 93 Bipap 35 04/04 1300 97.9 86 24 130/63 95 Bipap 35 04/04 1200 101 17 135/77 95 Bipap 35 04/04 1045 22 83 Bipap 35 / 1030 Bipap 04/ 1000 97.5 105 20 159/85 92 Nasal 2.0 Cannula 04/04 0944 21 92 04/04 0927 108 19 153/74 88 Nasal 2.0 Cannula 04/04 0839 106 18 164/71 76 Nasal 2.0 Cannula 04/04 0826 3.0 04/04 0759 Nasal 1.5 Cannula 04/04 0726 97.0 04/04 0725 99 15 146/69 92 Nasal 1.5 Cannula 04/04 0618 96 20 142/68 92 Nasal 1.5 Cannula 04/04 0529 102 20 118/58 87 04/04 0414 97 Nasal 1.0 Cannula 04/04 0411 85 25 106/55 97 Nasal 1.5 Cannula 04/04 0321 95 24 128/60 96 04/04 0222 91 24 129/63 90 Bipap 1.5 04/04 0210 1.5 04/04 0111 101 26 147/63 87 04/04 0022 89 26 133/64 91 Bipap 30 04/03 2307 97.5 97 24 134/63 90 Nasal 1.5 Cannula 04/03 2206 96 29 128/65 89 Nasal 1.5 Cannula 04/03 7 97.3 92 24 138/65 92 Nasal Cannula 04/03 2005 97 25 123/61 87 Nasal 3.0 Cannula 04/03 1938 Nasal 2.0 Cannula 01/26 1918 2.0 01/27 1912 97.2 95 28 110/65 91 Nasal 2.0 Cannula I&O 01/26 0800 01/26 1600 01/27 0000 Intake Total 1222 791 0157 Output Total 1232 925 325 Balance -135 -825 1152 General Appearance No acute distress, - altered, does not respond meaningful to conversations HEENT Atraumatic, EOMI, Moist mucous membranes Lungs - bialateral ronchi, bilateral wheezes bilaterally Cardiovascular Normal S1 and S2, No murmurs, gallops, rubs, - irregularly irregular rhythm Abdomen Soft, No tenderness, No guarding, No rebound, No masses, No hepatosplenomegaly Extremities No cyanosis, No clubbing, No edema, Normal pulses, No tenderness Skin No Breakdown, No Significant Lesions Neurological Normal speech, Normal tone, Sensation intact, Cranial nerves intact , No lateralizing signs Psych/Mental Status - unable to answer questions meaningfully LAB Results Laboratory Tests 01/27 01/27 0412 0412 Chemistry Plasma Sodium (136 - 145 mmol/L) 151 Plasma Potassium (3.5 - 5.1 mmol/L) 4.5 Plasma Chloride (98 - 107 mmol/L) 112 CO2 (Enzymatic) (21 - 32 mmol/L) 34 BUN (7 - 18 mg/dL) 28 Creatinine (0.6 - 1.3 mg/dL) 0.8 Est GFR ( Amer) (mL/min) >60 Est GFR (Non-Af Amer) (mL/min) >60 Glucose (70 - 110 mg/dL) 186 Plasma Calcium (8.5 - 10.1 mg/dL) 8.5 B-Natriuretic Peptide (5 - 100 pg/ml) 253 Hematology WBC (4.5 - 11.5 K/uL) 27.3 RBC (4.00 - 5.20 M/uL) 3.66 Hgb (12.0 - 16.0 gm/dL) 9.6 Hct (36.0 - 46.0 %) 30.5 MCV (80 - 100 fL) 83 MCH (26 - 34 pg) 26 RDW (11.6 - 14.8 %) 17.1 Neut % (Auto) (50 - 75 %) 76 Lymph % (Auto) (25 - 40 %) 6 [place] % (Auto) (3 - 14 %) 0 Eos % (Auto) (0 - 4 %) 0 Baso % (Auto) (0 - 2 %) 0 Band Neutrophils % (0 - 8 %) 18 Metamyelocytes % (0 - 1 %) 0 Myelocytes (0 - 1 %) 0 Other Cell Type 0 Plt Count, EDTA (150 - 400 K/uL) 381 Hypochromic-Microcytic 2+ Anisocytosis (manual) 1+ PUBS MCHC (31 - 37 g/dL) 32 Assessment and Plan Problem List 1. Pneumonia Plan -Patient with findings of pneumonia -Persistent leukocytosis --Continue Rocephin/Zithromax - will add diflucan - will trend wbc and pro calcitonin - more speciation needed for micro results 2. COPD exacerbation Plan -Patient with findings of COPD exacerbation -Continue DuoNeb, albuterol, IV corticosteroids -Supplemental oxygen to keep pulse oximetry 88-90% -BiPAP as needed -DNI -results relayed to significant other 3. Respiratory failure Plan -BiPAP as necessary 4. Hyperglycemia Status Acute Onset Date Unknown Plan - secondary to steroid use - will continue with sliding scale coverage 5. Hypernatremia Status Acute Onset Date 01/26/17 Plan - persistent hypernatremia -
[2017-01-28] VITALS (26 sets, daily range): BP systolic 69–163; BP diastolic 33–92
--- NOTE | 2017-01-28 18:46 | Progress Note ---
Subjective General Pt seen and examined. Patient is more responsive today however does not respond meaningfully. Patient additionally during the day had an episode of hypotension when she moved however it responded without any intervention. Additionally patient had a repeat episode of hypotension that occured spontaneously. Patient was infused with 1 liter of fluid and patients pressure responded appropriately. Patients condition remains guarded. Patients significant other was informed of the events that transpired and opted for a central line if things become more grave Constitutional Other (unable to respond meaningfully). Physical Exam Vital Signs / I&Os Vital Signs Date Time Temp Pulse Resp B/P Pulse O2 O2 Flow FiO2 Ox Delivery Rate 01/28 1811 127 23 128/73 91 Bipap 30 04/05 1714 130 21 118/67 91 Bipap 30 04/05 1607 109 19 85/59 04/05 1509 114 20 83/49 93 Nasal 2.0 Cannula 04/05 1408 121 19 90/50 87 Nasal 2.0 Cannula 04/05 1357 2.0 04/05 1300 146 22 108/46 97 Nasal 3.0 Cannula 04/05 1259 142 19 93/51 97 Nasal 3.0 Cannula 04/05 1254 139 25 93/51 87 Nasal 3.0 Cannula 04/05 1253 129 23 69/33 87 Nasal 3.0 Cannula 04/05 1200 103 19 139/53 88 Nasal 3.0 Cannula 04/05 1100 91 91 154/79 93 Nasal 30 Cannula 04/05 1100 92 20 93 Nasal 3.0 Cannula 04/05 1000 99 20 149/68 92 Nasal 3.0 Cannula 04/05 0900 103 17 153/69 92 Nasal 3.0 Cannula 04/05 0718 3.0 04/05 0700 95 18 128/46 93 Nasal 3.0 Cannula 04/05 0621 97.9 102 21 150/51 93 Nasal 3.0 Cannula 04/05 0500 96 19 134/60 93 Nasal 3.0 Cannula 04/05 0400 163/80 04/05 0311 90 20 147/76 97 Nasal 3.0 Cannula 04/05 0200 97.7 114 23 133/92 81 Nasal 3.0 Cannula 04/05 0141 3.0 04/05 0113 93 21 137/63 94 Nasal 3.0 Cannula 04/05 0018 93 23 129/73 100 Nasal 3.0 Cannula 04/04 2310 97.7 93 22 127/70 91 Nasal 3.0 Cannula 04/04 2202 103 20 140/65 92 Nasal 3.0 Cannula 01/27 2109 95 18 124/64 96 Nasal 3.0 Cannula 01/27 2050 Nasal 3.0 Cannula 01/28 2048 3.0 01/27 2006 97.7 94 18 154/68 96 Nasal 3.0 Cannula 01/270 105 17 124/54 96 Nasal 3.0 Cannula I&O 01/27 0800 01/27 1600 01/28 0000 Intake Total 1433 1078 826 Output Total 685 480 740 Balance 748 598 86 General Appearance Alert, Oriented X3, No acute distress Lungs - bilateral ronchi - diminished wheezes - adequate air exchange Cardiovascular Regular rate and rhythm, No murmurs, gallops, rubs Abdomen Soft, No tenderness, No guarding Extremities No edema, Normal pulses, No tenderness Skin No Breakdown, No Significant Lesions Neurological Normal tone, No lateralizing signs Psych/Mental Status Confused LAB Results Laboratory Tests 01/27 Blood Gas Sample Site RR Total CO2 (24.0 - 30.0 mmol/L) 39.1 ABG pH (7.35 - 7.45) 7.36 ABG pCO2 at Pt Temp (35 - 45 mmHg) 65.6 ABG pO2 at Pt Temp (60.0 - 80.0 mmHg) 67.2 ABG HCO3 (20.0 - 26.0 mmol/L) 37.1 ABG O2 Sat Calc/Susanne (95.1 - 100.0 %) 93.3 ABG Base Excess (-6.0 - -6.0 mmol/L) 10.8 ABG Reduced Hgb (%) 6.6 ABG Carboxyhemoglobin (0.5 - 1.5 %) 1.4 ABG Methemoglobin (0.4 - 1.5 %) 0.0 Ayo Test YES Other Total Hgb (12.0 - 16.0 g/dL) 8.9 A-a O2 Gradient (7.0 - 14.0 mmHg) 85.8 Hgb O2 Saturation (95.0 - 100.0 %) 92.0 Respiration Rate (/MIN) 16 O2 Liters/Min (0 - 20 L/MIN) 3 Vent Mode NC FiO2 (20 - 101 %) 32 Chemistry Plasma Sodium (136 - 145 mmol/L) 148 Plasma Potassium (3.5 - 5.1 mmol/L) 4.4 Plasma Chloride (98 - 107 mmol/L) 109 CO2 (Enzymatic) (21 - 32 mmol/L) 34 BUN (7 - 18 mg/dL) 16 Creatinine (0.6 - 1.3 mg/dL) 0.7 Est GFR ( Amer) (mL/min) >60 Est GFR (Non-Af Amer) (mL/min) >60 Glucose (70 - 110 mg/dL) 178 Plasma Calcium (8.5 - 10.1 mg/dL) 8.5 Total Bilirubin (0.0 - 1.0 mg/dL) 0.4 AST (15 - 37 U/L) 40 ALT (12 - 78 U/L) 53 Alkaline Phosphatase (46 - 116 U/L) 148 Total Protein (6.4 - 8.2 g/dL) 5.3 Albumin (3.3 - 5.0 g/dL) 2.5 Hematology WBC (4.5 - 11.5 K/uL) 27.9 RBC (4.00 - 5.20 M/uL) 3.47 Hgb (12.0 - 16.0 gm/dL) 9.2 Hct (36.0 - 46.0 %) 28.6 MCV (80 - 100 fL) 83 MCH (26 - 34 pg) 27 RDW (11.6 - 14.8 %) 16.8 Neut % (Auto) (50 - 75 %) 77 Lymph % (Auto) (25 - 40 %) 5 [place] % (Auto) (3 - 14 %) 0 Eos % (Auto) (0 - 4 %) 0 Baso % (Auto) (0 - 2 %) 0 Band Neutrophils % (0 - 8 %) 18 Metamyelocytes % (0 - 1 %) 0 Myelocytes (0 - 1 %) 0 Other Cell Type 0 Plt Count, EDTA (150 - 400 K/uL) 391 Hypochromic-Microcytic 2+ Anisocytosis (manual) 1+ PUBS MCHC (31 - 37 g/dL) 32 Assessment and Plan Problem List 1. Pneumonia Plan - will continue with current antibiotic regimen - Zosyn increased in dose - will continue to monitor respiratory function - will keep on bipap for the time being 2. Hypertension Status Chronic Onset Date Unknown Plan - resolved - pt seen to be hypotensive earlier - after 500 ccs of fluid hypotension resolved - will continue to hold anti-hypertensives 3. Hyperglycemia Status Acute Onset Date Unknown Plan - will continue with sliding scale coverage - will continue to monitor 4. Hypernatremia Status Acute Onset Date 01/26/17 Plan - resolved 5. COPD exacerbation Plan - will c/w duonebs and steroids - respiratory exam tenuous given two pathologies occuring at the same time
[2017-01-29] VITALS (12 sets, daily range): BP systolic 86–120; BP diastolic 40–76
[2017-01-29] MEDS ORDERED: MORPHINE S10 MG/5 ML SL (09:33)
--- NOTE | 2017-01-29 09:34 | Provider's Discharge Care Plan ---
Problem, Goal, Plan Problem List 1. Pneumonia 2. Respiratory failure 3. End of life care
--- NOTE | 2017-01-29 09:34 | Provider's Discharge Care Plan ---
Problem, Goal, Plan Problem List 1. Pneumonia 2. Respiratory failure 3. End of life care
--- NOTE | 2017-01-29 09:44 | Discharge Summary ---
Discharge Summary Report Admit Date 01/25/17 Discharge Date 01/29/17 Admission Diagnosis pneumonia altered mental status Discharge Diagnosis pneumonia resistent to treatment, end of life care Brief History please refer to original H&P Hospital Course Patient was admitted for pneumonia, patient was treated with broad spectrum antibiotics. Patient additionally was seen to have copd exacerbation secondary to the infection. Patient was treated with for both but was seen to have resistence to treatment both in her blood values and her overall mentation. Patient continued to decline steadily over her hospital course. Patients significant other was approached about the aggressiveness of future treatment. Patients signficant other was adament that futile treatments would not be beneficial for the patient. As the patient continued to decline it was decided to bring the patient to be at home when she passes. General Appearance Mild distress HEENT Mucous membran moist/pink Lungs - bilateral ronchi Cardiovascular Normal S1, Normal S2, No murmurs Abdomen Soft Skin No Breakdown Psych/Mental Status Mental status NL, Mood NL Lab/Imaging Laboratory Tests 01/29 UNK Hematology WBC Cancelled RBC Cancelled Hgb Cancelled Hct Cancelled MCV Cancelled MCH Cancelled RDW Cancelled Plt Count, EDTA Cancelled PUBS MCHC Cancelled Discharge Instructions/Meds - discharge to home
== END 2017-01-29 11:15 | disposition hospice, home (50) | DRG 190 ==
LOC: ED SRH 20:13 → TRANS SRH 01-25 01:35 → CC SRH 01-25 02:53
PROVIDERS: ADMIT Emergency Medicine
PROC: 5A09357 Assistance with Respiratory Ventilation, Less than 24 Consecutive Hours, Continuous Positive Airway Pressure (ICD-10-PCS; principal; 2017-01-24)
PROC: 5A09357 Assistance with Respiratory Ventilation, Less than 24 Consecutive Hours, Continuous Positive Airway Pressure (ICD-10-PCS; 2017-01-25)
PROC: 5A09357 Assistance with Respiratory Ventilation, Less than 24 Consecutive Hours, Continuous Positive Airway Pressure (ICD-10-PCS; 2017-01-27)
PROC: 5A09357 Assistance with Respiratory Ventilation, Less than 24 Consecutive Hours, Continuous Positive Airway Pressure (ICD-10-PCS; 2017-01-27)
PROC: 5A09357 Assistance with Respiratory Ventilation, Less than 24 Consecutive Hours, Continuous Positive Airway Pressure (ICD-10-PCS; 2017-01-28)
DX: J44.0 Chronic obstructive pulmonary disease with (acute) lower respiratory infection (principal); J15.9 Unspecified bacterial pneumonia; J96.02 Acute respiratory failure with hypercapnia; J96.01 Acute respiratory failure with hypoxia; J44.1 Chronic obstructive pulmonary disease with (acute) exacerbation; R73.9 Hyperglycemia, unspecified; T38.0X5A Adverse effect of glucocorticoids and synthetic analogues, initial encounter; E87.6 Hypokalemia; E83.42 Hypomagnesemia; F17.210 Nicotine dependence, cigarettes, uncomplicated; K21.9 Gastro-esophageal reflux disease without esophagitis; E78.5 Hyperlipidemia, unspecified